=== PATIENT | male | born 1930 | race Caucasian/White ===

== ENCOUNTER 2016-09-13 10:01 | Emergency (ER) | payer MEDICARE, BC ==
[2016-09-13 10:14] VITALS: BP 163/104
[2016-09-13] MEDS ORDERED: Ibuprofen TAB* 600 MG PO ONE (10:55)
--- NOTE | 2016-09-13 11:40 | ED ---
Upper Extremity Pain - HPI Summary HPI Summary: Patient is brought in by his daughter and son with a complaint of right shoulder pain that began this morning. His son noted that the patient had been using the right arm to pull himself to a standing position yesterday, which he normally does with the left hand, since this is his dominant hand. No known trauma has occurred and they have tried Tylenol with minimal relief. He denies previous injury, N/T or inability to use the elbow, wrist or hand. No deformities are noted. 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 Mechanism Of Injury: Unknown Onset/Duration: Started Days Ago - 1 Timing: Constant Severity Initially: Severe Severity Currently: Severe Pain Location: Shoulder Character: Sharp, Aching Aggravating Factor(s): Movement Alleviating Factor(s): Rest Associated Signs & Symptoms: Positive: Negative Related History: Dominant Hand Left <Thaddeus Sheffield - Last Filed: 09/14/16 09:11> <Lizet Kramer - Last Filed: 09/14/16 21:57> - History of Current Complaint Chief Complaint: EDShoulderClavicleInj Stated Complaint: RT SHOULDER PAIN Time Seen by Provider: 09/13/16 10:47 - Allergies/Home Medications Allergies/Adverse Reactions: Allergies Allergy/AdvReac Type Severity Reaction Status Date / Time narcotics Allergy Altered Uncoded 04/07/15 13:24 Mental Status PMH/Surg Hx/FS Hx/Imm Hx Endocrine/Hematology History: Reports: Hx Diabetes, Hx Thyroid Disease Cardiovascular History: Reports: Hx Hypertension Denies: Hx Pacemaker/ICD Sensory History: Reports: Hx Hearing Aid - REMOVED FOR MRI Psychiatric History: Denies: Hx Panic Disorder - Surgical History Surgery Procedure, Year, and Place: 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 Hip Replacement L. Eye surgeries, Macular hole replacement, corneal replacement. Hernia Repair x3. VASECTOMY. Vein Infectious Disease History: No Infectious Disease History: Denies: Traveled Outside the [place] in Last 30 Days - Family History Known Family History: Positive: Cardiac Disease, Hypertension - Social History Occupation: Retired Lives: With Family Alcohol Use: Rare Substance Use Type: Reports: None Smoking Status (MU): Never Smoked Tobacco <Thaddeus Sheffield - Last Filed: 09/14/16 09:11> Review of Systems Negative: Fever Positive: Arthralgia, Myalgia, Decreased ROM Negative: Weakness, Paresthesia, Numbness All Other Systems Reviewed And Are Negative: Yes <Thaddeus Sheffield - Last Filed: 09/14/16 09:11> Physical Exam Triage Information Reviewed: Yes Vital Signs On Initial Exam: Initial Vitals Temp Pulse Resp BP Pulse Ox 98.2 F 65 18 163/104 99 09/13/16 10:02 09/13/16 10:02 09/13/16 10:02 09/13/16 10:02 09/13/16 10:02 Vital Signs Reviewed: Yes Appearance: Positive: Well-Appearing, Well-Nourished, Pain Distress Skin: Positive: Warm, Skin Color Reflects Adequate Perfusion, Dry, Soft Head/Face: Positive: Normal Head/Face Inspection Eyes: Positive: EOMI, MALIK, Conjunctiva Clear ENT: Positive: Hearing grossly normal Respiratory/Lung Sounds: Positive: Breath Sounds Present Cardiovascular: Positive: RRR Musculoskeletal: Positive: Limited @, Pain @ - TTP right bicipital groove <Thaddeus Sheffield - Last Filed: 09/14/16 09:11> Vital Signs On Initial Exam: Initial Vitals Temp Pulse Resp BP Pulse Ox 98.2 F 65 18 163/104 99 09/13/16 10:02 09/13/16 10:02 09/13/16 10:02 09/13/16 10:02 09/13/16 10:02 <Lizet Kramer - Last Filed: 09/14/16 21:57> Diagnostics - Vital Signs Vital Signs Temp Pulse Resp BP Pulse Ox 09/13/16 10:02 98.2 F 65 18 163/104 99 - Radiology No standard instances Xray Interpretation: No Acute Changes Radiology Interpretation Completed By: Radiologist <Thaddeus Sheffield - Last Filed: 09/14/16 09:11> - Vital Signs Vital Signs Temp Pulse Resp BP Pulse Ox 09/13/16 12:34 70 16 09/13/16 10:02 98.2 F 65 18 163/104 99 <Lizet Kramer - Last Filed: 09/14/16 21:57> Course/Dx - Diagnoses Differential Diagnosis/HQI/PQRI: Positive: Arthritis, Bursitis, Fracture (Closed ), Septic Arthritis, Strain, Sprain <Thaddeus Sheffield - Last Filed: 09/14/16 09:11> <Lizet Kramer - Last Filed: 09/14/16 21:57> - Diagnoses Provider Diagnoses: OSTEOARTHRITIS,CALCIFIC TENDINITIS Discharge <Thaddeus Sheffield - Last Filed: 09/14/16 09:11> <Lizet Kramer - Last Filed: 09/14/16 21:57> - Discharge Plan Condition: Stable Disposition: HOME Patient Education Materials: Osteoarthritis (ED), Calcific Tendinitis (ED) Referrals: Jose L Christensen MD [Primary Care Provider] - Additional Instructions: Please use Tylenol and ibuprofen to reduce pain as needed. If symptoms do not begin to improve in 5-7 days follow-up with your primary care provider. Return to the emergency department if symptoms worsen. Attestations User Type: Provider - I was available for consult. This patient was seen by the advanced practice provider. The patient was not presented to, seen by, or examined by me. <Lizet Kramer - Last Filed: 09/14/16 21:57>
--- NOTE | 2016-09-13 11:41 | RAD ---
HISTORY: Right shoulder pain COMPARISONS: None VIEWS: 3, Frontal internal rotation, external rotation, and outlet views of the right shoulder FINDINGS: BONE DENSITY: There is diffuse osteopenia. BONES: There is no displaced fracture. JOINTS: There is moderate osteoarthritis of the a.c. and glenohumeral joints. ALIGNMENT: There is no dislocation. SOFT TISSUES: There is soft tissue calcification along the tuberosity OTHER FINDINGS: Degenerative changes are noted of the cervical spine. The patient is status post median sternotomy. IMPRESSION: 1. OSTEOPENIA. 2. OSTEOARTHRITIS. 3. SOFT TISSUE CALCIFICATIONS SUGGESTIVE OF A CALCIFIC TENDINOPATHY. 4. NO ACUTE OSSEOUS INJURY. IF SYMPTOMS PERSIST, RECOMMEND REPEAT IMAGING
[2016-09-13] MEDS ORDERED: Ibuprofen TAB* 400 MG ONE (11:44)
== END 2016-09-13 12:34 | disposition home or self-care (01) ==
LOC: ED 10:01
DX: M19.011 Primary osteoarthritis, right shoulder (principal); M85.80 Other specified disorders of bone density and structure, unspecified site; M65.20 Calcific tendinitis, unspecified site
CPT/HCPCS: 99281; A9270-GY

== ENCOUNTER 2017-01-02 15:59 | Emergency (ER) | payer MEDICARE, BC ==
[2017-01-02 16:09] VITALS: BP 128/77
--- NOTE | 2017-01-02 16:44 | UC ---
Lower Extremity/Ankle HPI - HPI Summary HPI Summary: Unwitnessed fall 2 nights ago. Has bruising on R foot/ankle, R knee, and R hip. Pt does not recall specific injuries, does have pain in bruised areas. Not willing to bear weight. - History of Current Complaint Chief Complaint: UCTrauma Stated Complaint: FOOT INJURY FROM FALL Time Seen by Provider: 01/02/17 16:17 Hx Obtained From: Patient Onset/Duration: Sudden Onset Severity Initially: Moderate Severity Currently: Moderate Aggravating Factor(s): Standing, Ambulation Alleviating Factor(s): Rest - Allergies/Home Medications Allergies/Adverse Reactions: Allergies Allergy/AdvReac Type Severity Reaction Status Date / Time narcotics Allergy Severe Altered Uncoded 01/02/17 16:21 Mental Status PMH/Surg Hx/FS Hx/Imm Hx Endocrine History: Diabetes Cardiovascular History: Cardiac Disease, Hypertension - Surgical History Surgical History: Yes Surgery Procedure, Year, and Place: 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 CORONARY Bypass. Hip Replacement L. Eye surgeries - CATARACT, ATTEMPTED BUT UNSUCCESSFUL Macular hole REPAIR [facility] EYES- , corneal replacement. Hernia Repair x3. VASECTOMY. LEGS - VENOUS REPAIR. LT HIP REPLACEMENT - Family History Known Family History: Positive: Cardiac Disease, Hypertension - Social History Occupation: Retired Lives: With Family Alcohol Use: Rare Substance Use Type: None Smoking Status (MU): Never Smoked Tobacco Review of Systems Constitutional: Negative Skin: Bruising Eyes: Negative ENT: Negative Respiratory: Negative Cardiovascular: Negative Gastrointestinal: Negative Genitourinary: Negative Motor: Negative Neurovascular: Negative Musculoskeletal: Arthralgia, Decreased ROM Neurological: Negative Psychological: Negative All Other Systems Reviewed And Are Negative: Yes Physical Exam Triage Information Reviewed: Yes Appearance: Well-Appearing, No Pain Distress, Well-Nourished Vital Signs: Initial Vital Signs Temp 98.2 F 01/02/17 16:08 Pulse 53 01/02/17 16:08 Resp 18 01/02/17 16:08 BP 128/77 01/02/17 16:08 Pulse Ox 100 01/02/17 16:08 Vital Signs Reviewed: Yes Eyes: Positive: Conjunctiva Clear ENT: Positive: Pharynx normal, TMs normal, Other: - no facial bruising or trauma noted. Negative: Hearing grossly normal - [place] JOLLA, Nasal drainage Neck exam: Normal, Other - no bony tenderness Neck: Positive: Supple, Nontender Respiratory Exam: Normal Respiratory: Positive: Chest non-tender, Lungs clear, Normal breath sounds, No respiratory distress, No accessory muscle use Cardiovascular Exam: Normal Cardiovascular: Positive: RRR, No Murmur Musculoskeletal: Positive: ROM Intact, Other: - R balling head tender at base of 5th MT , over proximal tarsal bones, widespread bruising on lateral ankle. Bruise with abrasion to R medial knee, full ROM of knee. Dark large bruise to R lateral upper thigh, int/ext hip rotation intact without pain Neurological Exam: Normal Neurological: Positive: Alert Psychological Exam: Normal Skin Exam: Other - bruising Lower Extremity Course/Dx - Differential Dx/Diagnosis Provider Diagnoses: R distal fibula spiral fracture closed, nondisplaced. R thigh and knee contusions Discharge - Discharge Plan Condition: Stable Disposition: HOME Patient Education Materials: Ankle Fracture (ED), Contusion in Adults (ED) Referrals: Armando Snell MD [Primary Care Provider] - Vignesh Hernandez MD [Medical Doctor] - 1 Week Additional Instructions: You broke the lower part of your fibula bone in your ankle. Your hip and knee appear to be ok on the x-rays. You may bear weight only when you are wearing the boot on your foot AND USING YOUR WALKER! Try to keep your weight off the injured ankle as much as possible. Follow up with the orthopedist listed here or someone at [facility] within the next week.
--- NOTE | 2017-01-02 17:38 | RAD ---
Indication: Right Foot injury. 3 views of the right foot demonstrates old healed fracture fifth metatarsal. No definite fracture is identified. IMPRESSION: Healing fracture fifth metatarsal. No recent fracture is identified.
--- NOTE | 2017-01-02 17:40 | RAD ---
Indication: Right Ankle pain. 3 views of the right ankle demonstrates a spiral fracture of the distal fibula. Ankle mortise is intact. IMPRESSION: Spiral fracture of the distal fibula with minimal lateral displacement.
--- NOTE | 2017-01-02 17:42 | RAD ---
Indication: Right knee injury. 2 views of the right knee demonstrates no fracture. No other bone or joint abnormality is noted. IMPRESSION: No fracture of the right knee is noted.
--- NOTE | 2017-01-02 17:45 | RAD ---
Indication: Right hip pain. 2 views of the right hip and an AP view the pelvis demonstrates no definite fracture. Degenerative changes of the right hip are noted with osteophyte formation. No fracture is identified. IMPRESSION: Degenerative changes of the right hip is noted.
== END 2017-01-02 18:04 | disposition home or self-care (01) ==
LOC: UCEAST 15:59
DX: S82.441A Displaced spiral fracture of shaft of right fibula, initial encounter for closed fracture (principal); W19.XXXA Unspecified fall, initial encounter
CPT/HCPCS: 99212; G0463

== ENCOUNTER 2017-01-16 03:23 | Emergency (ER) | payer MEDICARE, BC ==
[2017-01-16 04:02] VITALS: BP 128/99
[2017-01-16] MEDS ORDERED: Tetan/Diph/Pertus SYR(Tdap)* 0.5 ML SYR(BOOSTRIX) use SYR IM ONE (04:06)
--- NOTE | 2017-01-16 06:21 | ED ---
Reynold Baca Benjamin, scribed for Marya Hansen MD on 01/16/17 at 0412 . Laceration/Wound HPI - HPI Summary HPI Summary: 86yo male comes in after a mechanical fall tonight while walking around the bed. Pt has a right forearm laceration and admits head injury upon the fall. No LOC. Denies CP or SOB. Hx of DM and CVA. Pt did fracture his right leg a couple of weeks ago from a previous fall episode, which pt has a boot placed on. Last tetanus immunization is unknown. There is also a mild abrasion on the left shoulder. - History of Current Complaint Stated Complaint: FALL/LAC ON RIGHT FOREARM Time Seen by Provider: 01/16/17 03:53 Hx Obtained From: Patient, Family/Career Development Director - son Mechanism of Injury: Other - mechanical fall Onset/Duration: Sudden Onset, Still Present Aggravating: Nothing Alleviating: Nothing Timing: Constant Onset Severity: Mild Current Severity: Mild Pain Intensity: 0 Pain Scale Used: 0-10 Numeric Associated Signs & Symptoms: Negative - Allergy/Home Medications Allergies/Adverse Reactions: Allergies Allergy/AdvReac Type Severity Reaction Status Date / Time narcotics Allergy Severe Altered Uncoded 01/02/17 16:21 Mental Status PMH/Surg Hx/FS Hx/Imm Hx Endocrine/Hematology History: Reports: Hx Diabetes, Hx Thyroid Disease Cardiovascular History: Reports: Hx Hypertension Denies: Hx Pacemaker/ICD History: Denies: Hx Renal Disease Sensory History: Reports: Hx Hearing Aid - REMOVED FOR MRI Psychiatric History: Denies: Hx Panic Disorder - Surgical History Surgery Procedure, Year, and Place: 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 CORONARY Bypass. Hip Replacement L. Eye surgeries - CATARACT, ATTEMPTED BUT UNSUCCESSFUL Macular hole REPAIR [facility] EYES- , corneal replacement. Hernia Repair x3. VASECTOMY. LEGS - VENOUS REPAIR. LT HIP REPLACEMENT - Immunization History Date of Tetanus Vaccine: unknown Infectious Disease History: No Infectious Disease History: Denies: Traveled Outside the [place] in Last 30 Days - Family History Known Family History: Positive: Cardiac Disease, Hypertension - Social History Occupation: Retired Lives: Alone Alcohol Use: Rare Substance Use Type: Reports: None Smoking Status (MU): Never Smoked Tobacco Review of Systems Constitutional: Negative Negative: Fever, Chills Eyes: Negative ENT: Negative Cardiovascular: Negative Negative: Chest Pain Respiratory: Negative Negative: Shortness Of Breath Gastrointestinal: Negative Genitourinary: Negative Musculoskeletal: Negative Positive: Other - laceration on right forearm; abrasion on left shoulder Neurological: Negative Psychological: Normal All Other Systems Reviewed And Are Negative: Yes Physical Exam Triage Information Reviewed: Yes Vital Signs On Initial Exam: Initial Vitals Temp Pulse Resp BP Pulse Ox 97.9 F 78 16 128/66 99 01/16/17 03:34 01/16/17 03:34 01/16/17 03:34 01/16/17 03:34 01/16/17 03:34 Vital Signs Reviewed: Yes Appearance: Positive: Well-Appearing, No Pain Distress, Well-Nourished Skin: Positive: Warm, Skin Color Reflects Adequate Perfusion, Dry, Other - 4cm Skin tear in circumference mid forearm dorsum, full rom. mild point tenderness. Abrasion in left posterior shoulder Head/Face: Positive: Normal Head/Face Inspection Eyes: Positive: EOMI, MALIK ENT: Positive: Hearing grossly normal, Pharynx normal, TMs normal Neck: Positive: Supple, Nontender Respiratory/Lung Sounds: Positive: Clear to Auscultation, Breath Sounds Present. Negative: Rales, Rhonchi Cardiovascular: Positive: RRR. Negative: Murmur Abdomen Description: Positive: Nontender, Soft. Negative: Distended, Guarding Bowel Sounds: Positive: Present Musculoskeletal: Positive: Strength/ROM Intact, Pain @ - RUE mild tenderness Neurological: Positive: Sensory/Motor Intact, Alert, Oriented to Person Place, Time, CN Intact II-III Psychiatric: Positive: Affect/Mood Appropriate - [place] Coma Scale Coma Scale Total: 14 Diagnostics - Vital Signs Vital Signs Temp Pulse Resp BP Pulse Ox 01/16/17 03:53 97.9 F 78 16 128/99 99 01/16/17 03:34 97.9 F 78 16 128/66 99 - Laboratory Lab Statement: Any lab studies that have been ordered have been reviewed, and results considered in the medical decision making process. - Radiology Forearm XR Xray Interpretation: No Acute Changes Radiology Interpretation Completed By: ED Physician - CT Brain CT WO CT Interpretation: No Acute Changes CT Interpretation Completed By: Radiologist Laceration Repair Course/Dx - Course Course Of Treatment: 86 yo male with a very unsteady gait who fell overnight with a skin tear right forearm, it was unclear if the patient hit his head, CT brain and xray of forearm neg, skin tear repaired with steristrips by nurse - Clinical Impression Provider Diagnoses: Hematoma, Abrasion, Skin tear Discharge - Discharge Plan Condition: Stable Disposition: HOME Patient Education Materials: Laceration (ED), Fall Prevention for Older Adults (ED), Head Injury (ED) Referrals: Armando Snell MD [Primary Care Provider] - The documentation as recorded by the Reynold day Benjamin accurately reflects the service I personally performed and the decisions made by me, Marya Hansen MD.
--- NOTE | 2017-01-16 08:05 | RAD ---
INDICATION: Right forearm injury COMPARISON: None TECHNIQUE: AP and lateral views were obtained. FINDINGS: There is no fracture or foreign body. There is soft tissue injury with laceration about the mid forearm. IMPRESSION: SOFT TISSUE INJURY.
--- NOTE | 2017-01-16 08:14 | RAD ---
INDICATION: Fall. Intracranial injury. COMPARISON: CT July 02, 2011 TECHNIQUE: Noncontrast axial source images were acquired from the skull base to the vertex. FINDINGS: Ventricles/sulci: There is cortical atrophy with compensatory dilatation of the CSF spaces. Brain parenchyma: There is no acute focal parenchymal finding. There is large area of encephalomalacia in the right cerebellar hemisphere compatible with a remote infarct. The appearance unchanged. There is periventricular and subcortical white matter change consistent with mild chronic microvascular ischemia. Intracranial hemorrhage:None. Extra-axial spaces: There are no abnormal extra axial fluid collections or evidence of extra-axial mass. Calvarium: There is no calvarial fracture or other calvarial abnormality. Scalp: There is no evidence of scalp or extracalvarial soft tissue abnormality. Paranasal sinuses/mastoid: The paranasal sinuses and mastoid air cells are clear. Other: None. IMPRESSION: Sequela of prior vascular insult. No acute intracranial findings.
== END 2017-01-16 06:16 | disposition home or self-care (01) ==
LOC: ED 03:23
DX: S51.811A Laceration without foreign body of right forearm, initial encounter (principal); S00.93XA Contusion of unspecified part of head, initial encounter; S40.212A Abrasion of left shoulder, initial encounter; W19.XXXA Unspecified fall, initial encounter; Y93.9 Activity, unspecified; Y92.9 Unspecified place or not applicable
CPT/HCPCS: 70450; 90471; 90715; 99282

== ENCOUNTER 2017-10-07 17:18 | Inpatient (IN) | payer MEDICARE, BC ==
[2017-10-07] MEDS ORDERED: Haloperidol INJ IV/IM* 5 MG/ML AMP IM ONE (19:45)
[2017-10-07] MEDS ORDERED: LORazepam INJ* 2 MG/ML 1 ML VIAL IV PUSH ONE (19:45)
[2017-10-07] MEDS ORDERED: NS 0.9% 1000 ML* 1,000 ML IV ONE (19:46)
[2017-10-07] MEDS ORDERED: LORazepam INJ* 2 MG/ML 1 ML VIAL ONE (20:12)
[2017-10-07 20:25] LABS: ABS Basophils 0.1 10^3/ul (0-0.2); ABS Eosinophils 0 10^3/ul (0-0.6); ABS Lymphocytes 2.1 10^3/ul (1.0-4.8); ABS Monocytes 1.5 10^3/ul (0-0.8); ABS Neutrophils 7.8 10^3/ul (1.5-7.7); ABS Nucleated RBC 0 10^3/ul; Eosinophil % 0.2 % (0-6); Hematocrit 45 % (42-52); Hemoglobin 14.9 g/dl (14.0-18.0); Lymphocyte % 18.6 % (25-47); Mean Corpuscular HGB Conc 34 g/dl (31-36); Mean Corpuscular Hemoglobin 32 pg (27-31); Mean Corpuscular Volume 95 fL (80-94); Mean Platelet Volume 9.1 um3 (7.4-10.4); Nucleated Red Blood Cells % 0; Platelet Count 135 10^3/ul (150-450); Red Cell Distribution Width 14 % (10.5-15); White Blood Count 11.5 10^3/ul (3.5-10.8)
[2017-10-07 20:34] LABS: INR 0.93 (0.77-1.02)
[2017-10-07 20:45] LABS: EGFR Non-African American 59.2 (>60)
[2017-10-07 21:21] LABS: Urine Appearance Clear; Urine Blood Negative (Negative); Urine Color Yellow; Urine Ketones Negative (Negative); Urine Protein Negative (Negative); Urine Specific Gravity 1.021 (1.010-1.030); Urine Urobilinogen Negative (Negative)
--- NOTE | 2017-10-07 21:31 | RAD ---
INDICATION: Altered mental status COMPARISON: CT of the brain January 16, 2017 TECHNIQUE: Contiguous axial sections of the brain were obtained from the skull base to the vertex without contrast. FINDINGS: Unless otherwise specified comparisons below reference the January 16, 2017 CT of the brain. The ventricles, cisterns and sulci exhibit symmetrical involutional changes similar in appearance to the prior CT the brain. There is stable encephalomalacia at the right cerebellum. There is diffuse periventricular and subcortical white matter hypoattenuation, similar in appearance to the previous CT of the brain, most consistent with chronic microvascular disease. Otherwise the sánchez-white matter differentiation is adequately maintained and there is no sulcal effacement. No significant focal abnormality or mass effect is present. There is no evidence for intracranial hemorrhage. No significant focal osseous abnormality is present. The visualized portion of the paranasal sinuses appear clear. The mastoid air cells are well aerated bilaterally. IMPRESSION: 1. No CT evidence of acute intracranial abnormality. 2. Chronic findings including encephalomalacia of the right cerebellum and evidence of microvascular disease similar in appearance to the January 16, 2017 CT of the brain.
--- NOTE | 2017-10-07 21:34 | RAD ---
INDICATION: Altered mental status COMPARISON: Chest x-ray dated June 02, 2015 TECHNIQUE: Single AP portable view of the chest was obtained. FINDINGS: Image quality is compromised due to the relative inferiority of a portable chest x-ray. The heart and mediastinum exhibit normal size and contour. The lungs are grossly clear. There is no evidence of a large pleural effusion. Visualized bones are normal for the patient's age. IMPRESSION: No radiographic evidence for acute cardiopulmonary abnormality on this portable chest x-ray.
--- NOTE | 2017-10-07 22:32 | ED ---
Greg Baca Rebecca, scribed for Mirna Berg MD on 10/07/17 at 1942 . Altered Mental Status - HPI Summary HPI Summary: Pt is an 87 y/o M BIBA who presents to ED due to concerns of acute on chronic confusion. Pt has a PMHx of dementia and is accompanied by his two children who report history. They state that at baseline, he has episodes of confusion at [id number], though in the last 3-4 days he has become increasingly confused . They additionally note 2 witnessed falls in the last 24 hours. Deny fever. Has an appointment tomorrow with his PCP for a UTI workup. No Hx is obtainable from the pt, level 5 caveat due to PMHx dementia. - History Of Current Complaint Chief Complaint: EDAltMentalStatus Stated Complaint: AMS/FALL Time Seen by Provider: 10/07/17 19:23 Hx Obtained From: Family/Medical Coding Instructor - Tammie nd daughter Hx From Patient Unobtainable Due To: Dementia Onset/Duration: Still Present Character: Confusion Aggravating Factor(s): Nothing Alleviating Factor(s): Nothing Associated Signs And Symptoms: Positive: Recent Trauma - 2 recent witnessed falls Related History: Other: - PMHx dementia - Allergies/Home Medications Allergies/Adverse Reactions: Allergies Allergy/AdvReac Type Severity Reaction Status Date / Time narcotics Allergy Severe Altered Uncoded 01/02/17 16:21 Mental Status Home Medications: Home Medications ALPRAZolam TAB* [Xanax TAB*] 0.25 mg PO BID PRN 10/07/17 [History Confirmed 02/16] Acetaminophen TAB* [Tylenol TAB*] 325 mg PO Q4H PRN 10/07/17 [History Confirmed 10/07/17] Aspirin EC TAB* [Ecotrin EC Low Dose 81 MG*] 81 mg PO DAILY 10/07/17 [History Confirmed 10/07/17] Calcium Polycarbophil [Fiber Lax] 625 mg PO DAILY 10/07/17 [History Confirmed ] Cholecalciferol TAB* [Vitamin D TAB*] 1,000 unit PO DAILY 10/07/17 [History Confirmed 10/07/17] Folic Acid TAB* [Folvite TAB*] 1 mg PO DAILY 10/07/17 [History Confirmed ] Levothyroxine TAB* [Synthroid TAB*] 50 mcg PO QAM 10/07/17 [History Confirmed ] Magnesium Oxide TAB* [MagOx 400 TAB*] 400 mg PO DAILY 10/07/17 [History Confirmed 10/07/17] Multivit-Mins/Iron/Folic/Lycop [Centrum Ultra Mens] 1 tab PO DAILY 10/07/17 [ History Confirmed 10/07/17] QUEtiapine TAB* [SEROquel TAB*] 25 mg PO BEDTIME 10/07/17 [History Confirmed 02/16] Rosuvastatin (NF) [Crestor (NF)] 20 mg PO BID 10/07/17 [History Confirmed ] Sertraline* [Zoloft*] 150 mg PO DAILY 10/07/17 [History Confirmed 10/07/17] SitaGLIPtin (NF) [Januvia (NF)] 100 mg PO DAILY 10/07/17 [History Confirmed 02/16] Sotalol TAB* [Betapace 80 MG TAB*] 80 mg PO BID 10/07/17 [History Confirmed 02/16] Tamsulosin CAP* [Flomax CAP*] 0.4 mg PO DAILY 10/07/17 [History Confirmed ] glipiZIDE TAB.XL* [Glucotrol XL*] 5 mg PO DAILY 10/07/17 [History Confirmed 02/16] prednisoLONE 1% OPHTH.SUSP* [Pred Forte 1%*] 1 drop LEFT EYE DAILY 10/07/17 [ History Confirmed 10/07/17] PMH/Surg Hx/FS Hx/Imm Hx Endocrine/Hematology History: Reports: Hx Diabetes, Hx Thyroid Disease Cardiovascular History: Reports: Hx Hypertension Denies: Hx Pacemaker/ICD History: Denies: Hx Renal Disease Sensory History: Reports: Hx Hearing Aid - REMOVED FOR MRI Neurological History: Reports: Hx Dementia Psychiatric History: Denies: Hx Panic Disorder - Surgical History Surgery Procedure, Year, and Place: 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 CORONARY Bypass. Hip Replacement L. Eye surgeries - CATARACT, ATTEMPTED BUT UNSUCCESSFUL Macular hole REPAIR [facility]- , corneal replacement. Hernia Repair x3. VASECTOMY. LEGS - VENOUS REPAIR. LT HIP REPLACEMENT - Immunization History Date of Tetanus Vaccine: unknown Infectious Disease History: No Infectious Disease History: Denies: Traveled Outside the [place] in Last 30 Days - Family History Known Family History: Positive: Cardiac Disease, Hypertension - Social History Lives: With Family Alcohol Use: Rare Substance Use Type: Reports: None Smoking Status (MU): Never Smoked Tobacco Review of Systems Positive: Other - 2 recent falls. Negative: Fever Neurological: Other - Acute on chronic confusion All Other Systems Reviewed And Are Negative: No - Comments Additional Review of Systems Comments: Level 5 caveat due to PMHx dementia. Physical Exam - Summary Physical Exam Summary: VITAL SIGNS: Reviewed. GENERAL: ~Patient is an elderly male who is confused and trying to get out of bed. Patient is not in any acute respiratory distress. HEAD AND FACE: No signs of trauma. No ecchymosis, hematomas or skull depressions. No sinus tenderness. EYES: PERRLA, EOMI x 2, No injected conjunctiva, no nystagmus. EARS: Hearing grossly intact. Ear canals and tympanic membranes are within normal limits. MOUTH: Oropharynx within normal limits. LUNGS: Decreased breath sounds bilaterally. No wheezing or crackles. CVS: Regular rate and rhythm, S1 and S2 present, no murmurs or gallops appreciated. EXTREMITIES: Moves all extremities in a grossly normal manner, no edema, no cyanosis or clubbing. NEURO: Alert and disoriented. Does not follow commands. SKIN: Dry and warm. Multiple areas of ecchymosis on the thighs. Triage Information Reviewed: Yes Vital Signs On Initial Exam: Initial Vitals Temp Pulse Resp BP Pulse Ox 98 F 84 14 135/82 95 10/07/17 17:30 10/07/17 17:30 10/07/17 17:30 10/07/17 17:30 10/07/17 17:30 Vital Signs Reviewed: Yes Completion Of Physical Exam Limited Due To: Dementia, Level 5 - Konstantin Coma Scale Glascow Coma Scale Comments: 13 Diagnostics - Vital Signs Vital Signs Temp Pulse Resp BP Pulse Ox 10/07/17 19:00 17 10/07/17 18:00 88 23 149/96 84 10/07/17 17:41 93 23 158/85 96 10/07/17 17:37 84 96 10/07/17 17:30 98 F 84 14 135/82 95 - Laboratory Result Diagrams: 10/07/17 20:00 10/07/17 20:00 Lab Statement: Any lab studies that have been ordered have been reviewed, and results considered in the medical decision making process. - Radiology CXR Xray Interpretation: No Acute Changes - No radiographic evidence for acute cardiopulmonary abnormality on this portable chest x-ray. ED physician reviewed this report. Radiology Interpretation Completed By: Radiologist - CT Brain CT CT Interpretation: No Acute Changes - 1. No CT evidence of acute intracranial abnormality. 2. Chronic findings including encephalomalacia of the right cerebellum and evidence of microvascular disease similar in appearance to the January 16, 2017 CT of the brain. ED physician reviewed this radiology report. CT Interpretation Completed By: Radiologist Altered Mental Statu Course/Dx - Course Assessment/Plan: Pt is an 87 y/o M with a PMHx of dementia BIBA accompanied by his 2 children who presents to ED due to concerns of acute on chronic confusion , worsening in the last 3-4 days. Trupti additionally note 2 witnessed falls in the last 24 hours. Deny fever. Has an appointment tomorrow with his PCP for a UTI workup. No Hx is obtainable from the pt, level 5 caveat due to PMHx dementia. Brain CT and CXR reveal no acute findings. UA negative. In the ED course pt was given Haldol, ativan and fluids. Allergy noted. - Diagnoses Provider Diagnoses: Altered mental status - Provider Notifications Discussed Care Of Patient With: Hussein Acosta Time Discussed With Above Provider: 22:16 Instructed by Provider To: Other - Accepts pt for admission. Discharge - Sign-Out/Discharge Documenting (check all that apply): Discharge - Accepted - Discharge Plan Condition: Fair Disposition: ADMITTED TO [facility] Referrals: Armando Snell MD [Primary Care Provider] - The documentation as recorded by the Greg day Rebecca accurately reflects the service I personally performed and the decisions made by , Mirna Berg MD.
[2017-10-07] MEDS ORDERED: hydrALAZINE IV* 20 MG/ML VIAL IV PRN (23:20)
[2017-10-07] MEDS ORDERED: Acetaminophen TAB* 325 MG PO PRN (23:20)
--- NOTE | 2017-10-07 23:31 | HP ---
H&P (Free Text) History and Physical: PCP: Anum Snell MD Date/Time: 10/07/2017 [id number] CC: confusion HPI: Mr Mccann is an 87YO male HX dementia, CVA, bovine AVR, DVT, SVT, adrenal insufficiency, DM2, HTN, CAD/CABG who has been declining from a dementia standpoint for the past 6 months, manifesting progressively more disruptive and frequent behavioral issues and confusion. Family relates that over the past 3 days he has been confused continuously like he had typically been only at night previously. He has had urinary incontinence the last 2 nights which is new. He does frequently complain of various aches, but is easily distracted from the discomfort. There has been no other issues. As his confusion has never been this prolonged, they decided to have him brought in and evaluated. Upon arrival , he was reportedly highly confused and combative. Upon my evaluation, he was somnolent and sedated from medications given in ED. PMedHx CAD/CABG bovine AVR SVT CVA DM2 DVT adrenal insufficiency HTN hypothyroidism dementia BPH depression anxiety Ambulatory Orders ALPRAZolam TAB* [Xanax TAB*] 0.25 mg PO BID PRN 10/07/17 Acetaminophen TAB* [Tylenol TAB*] 325 mg PO Q4H PRN 10/07/17 Aspirin EC TAB* [Ecotrin EC Low Dose 81 MG*] 81 mg PO DAILY 10/07/17 Calcium Polycarbophil [Fiber Lax] 625 mg PO DAILY 10/07/17 Cholecalciferol TAB* [Vitamin D TAB*] 1,000 unit PO DAILY 10/07/17 Folic Acid TAB* [Folvite TAB*] 1 mg PO DAILY 10/07/17 Levothyroxine TAB* [Synthroid TAB*] 50 mcg PO QAM 10/07/17 Magnesium Oxide TAB* [MagOx 400 TAB*] 400 mg PO DAILY 10/07/17 Multivit-Mins/Iron/Folic/Lycop [Centrum Ultra Mens] 1 tab PO DAILY 10/07/17 QUEtiapine TAB* [SEROquel TAB*] 25 mg PO BEDTIME 10/07/17 Rosuvastatin (NF) [Crestor (NF)] 20 mg PO BID 10/07/17 Sertraline* [Zoloft*] 150 mg PO DAILY 10/07/17 SitaGLIPtin (NF) [Januvia (NF)] 100 mg PO DAILY 10/07/17 Sotalol TAB* [Betapace 80 MG TAB*] 80 mg PO BID 10/07/17 Tamsulosin CAP* [Flomax CAP*] 0.4 mg PO DAILY 10/07/17 glipiZIDE TAB.XL* [Glucotrol XL*] 5 mg PO DAILY 10/07/17 prednisoLONE 1% OPHTH.SUSP* [Pred Forte 1%*] 1 drop LEFT EYE DAILY 10/07/17 Allergies narcotics Adverse Reaction (Uncoded 10/07/17 22:22) Altered Mental Status PSurgHx bovine AVR CABG OU cataract extractions R inguinal hernia repair SocHx: no tobacco, alcohol, or recreational drugs; lives with family; 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; full code status, needs revisiting FamHx: reviewed, non-contributory ROS: as above, otherwise reviewed and all were negative vitals: Vital Signs Temp 36.6 C 10/07/17 17:30 Pulse 85 10/07/17 22:07 Resp 16 10/07/17 22:07 BP 108/57 10/07/17 22:07 Pulse Ox 95 10/07/17 20:41 Intake & Output 10/06/17 10/07/17 10/07/17 23:59 11:59 23:59 Intake Total 1000 Balance 1000 Weight 95.254 kg Intake: IV Fluids 1000 Constitutional: NAD, normally developed, overweight elderly white male HEENM: atraumatic; sclera: anicteric; hearing: unable to assess; oropharynx: clear, mucosa moist Neck: soft tissue: no nuchal rigidity; thyroid: normal Pulmonary: clear to auscultation bilaterally, good aeration, no accessory muscle use CV: RR/RR, normal S1S2, no carotid bruit, no jugular venous distention, 2+ B DP/ PT, no edema Abdominal: soft, non-distended, non-tender, no rebound/guarding/rigidity, normoactive bowel sounds, no hepatosplenomegaly or masses, no costovertebral angle tenderness Musculoskeletal: general: grossly intact, no tenderness w/ palpation Integumental: normal appearance and texture of exposed skin Psychiatric orientation: AA&O to PPS affect: somnolent mood: acquiescent eye contact: poor content: absent memory: unable to assess responses: minimal, withdraws purposefully to noxious stimuli insight: poor to absent Testing: Lab Results 10/07/17 10/07/17 10/07/17 Range/Units 20:00 20:00 20:00 WBC 11.5 H (3.5-10.8) 10^3/ul RBC 4.70 (4.0-5.4) 10^6/ul Hgb 14.9 (14.0-18.0) g/dl Hct 45 (42-52) % MCV 95 H (80-94) fL MCH 32 H (27-31) pg MCHC 34 (31-36) g/dl RDW 14 (10.5-15) % Plt Count 135 L (150-450) 10^3/ul MPV 9.1 (7.4-10.4) um3 Neut % (Auto) 67.7 (38-83) % Lymph % (Auto) 18.6 L (25-47) % [place] % (Auto) 12.9 H (0-7) % Eos % (Auto) 0.2 (0-6) % Baso % (Auto) 0.6 (0-2) % Absolute Neuts (auto) 7.8 H (1.5-7.7) 10^3/ul Absolute Lymphs (auto) 2.1 (1.0-4.8) 10^3/ul Absolute Monos (auto) 1.5 H (0-0.8) 10^3/ul Absolute Eos (auto) 0 (0-0.6) 10^3/ul Absolute Basos (auto) 0.1 (0-0.2) 10^3/ul Absolute Nucleated RBC 0 10^3/ul Nucleated RBC % 0 INR (Anticoag Therapy) 0.93 (0.77-1.02) APTT 24.6 L (26.0-36.3) seconds Sodium 140 (139-145) mmol/L Potassium 3.7 (3.5-5.0) mmol/L Chloride 105 (101-111) mmol/L Carbon Dioxide 28 (22-32) mmol/L Anion Gap 7 (2-11) mmol/L BUN 21 (6-24) mg/dL Creatinine 1.17 (0.67-1.17) mg/dL Est GFR ( Amer) 76.2 (>60) Est GFR (Non-Af Amer) 59.2 (>60) BUN/Creatinine Ratio 17.9 (8-20) Glucose 137 H (70-100) mg/dL Lactic Acid (0.5-2.0) mmol/L Calcium 10.5 H (8.6-10.3) mg/dL Total Bilirubin 0.70 (0.2-1.0) mg/dL AST 21 (13-39) U/L ALT 13 (7-52) U/L Alkaline Phosphatase 96 (34-104) U/L Troponin I 0.03 (<0.04) ng/mL Total Protein 7.5 (6.4-8.9) g/dL Albumin 3.8 (3.2-5.2) g/dL Globulin 3.7 (2-4) g/dL Albumin/Globulin Ratio 1.0 (1-3) Urine Color Urine Appearance Urine pH (5-9) Ur Specific [place] (1.010-1.030) Urine Protein (Negative) Urine Ketones (Negative) Urine Blood (Negative) Urine Nitrate (Negative) Urine Bilirubin (Negative) Urine Urobilinogen (Negative) Ur Leukocyte Esterase (Negative) Urine Glucose (Negative) 10/07/17 10/07/17 Range/Units 20:00 21:05 WBC (3.5-10.8) 10^3/ul RBC (4.0-5.4) 10^6/ul Hgb (14.0-18.0) g/dl Hct (42-52) % MCV (80-94) fL MCH (27-31) pg MCHC (31-36) g/dl RDW (10.5-15) % Plt Count (150-450) 10^3/ul MPV (7.4-10.4) um3 Neut % (Auto) (38-83) % Lymph % (Auto) (25-47) % [place] % (Auto) (0-7) % Eos % (Auto) (0-6) % Baso % (Auto) (0-2) % Absolute Neuts (auto) (1.5-7.7) 10^3/ul Absolute Lymphs (auto) (1.0-4.8) 10^3/ul Absolute Monos (auto) (0-0.8) 10^3/ul Absolute Eos (auto) (0-0.6) 10^3/ul Absolute Basos (auto) (0-0.2) 10^3/ul Absolute Nucleated RBC 10^3/ul Nucleated RBC % INR (Anticoag Therapy) (0.77-1.02) APTT (26.0-36.3) seconds Sodium (139-145) mmol/L Potassium (3.5-5.0) mmol/L Chloride (101-111) mmol/L Carbon Dioxide (22-32) mmol/L Anion Gap (2-11) mmol/L BUN (6-24) mg/dL Creatinine (0.67-1.17) mg/dL Est GFR ( Amer) (>60) Est GFR (Non-Af Amer) (>60) BUN/Creatinine Ratio (8-20) Glucose (70-100) mg/dL Lactic Acid 1.2 (0.5-2.0) mmol/L Calcium (8.6-10.3) mg/dL Total Bilirubin (0.2-1.0) mg/dL AST (13-39) U/L ALT (7-52) U/L Alkaline Phosphatase (34-104) U/L Troponin I (<0.04) ng/mL Total Protein (6.4-8.9) g/dL Albumin (3.2-5.2) g/dL Globulin (2-4) g/dL Albumin/Globulin Ratio (1-3) Urine Color Yellow Urine Appearance Clear Urine pH 5.0 (5-9) Ur Specific [place] 1.021 (1.010-1.030) Urine Protein Negative (Negative) Urine Ketones Negative (Negative) Urine Blood Negative (Negative) Urine Nitrate Negative (Negative) Urine Bilirubin Negative (Negative) Urine Urobilinogen Negative (Negative) Ur Leukocyte Esterase Negative (Negative) Urine Glucose Negative (Negative) CXR, personally reviewed: IMPRESSION: No radiographic evidence for acute cardiopulmonary abnormality on this portable chest x-ray. CT brain WO, personally reviewed: IMPRESSION: 1. No CT evidence of acute intracranial abnormality. 2. Chronic findings including encephalomalacia of the right cerebellum and evidence of microvascular disease similar in appearance to the January 16, 2017 CT of the brain. Impression: 87M HX dementia, CVA, bovine AVR, DVT, SVT, adrenal insufficiency, DM2, HTN, CAD/CABG presents with progressive confusion & behavioral issues likely related to his dementia DIAGNOSIS & PLAN Primary confusion & behavioral issues, likely 2nd progressive dementia : continue quetiapine : recheck labs in AM : PT/OT evaluations : rn social services consult : check EEG in AM give risk factors for seizure : supportive care Secondary CAD/CABG : continue aspirin bovine AVR : no acute issues CVA : continue aspirin DM2 : continue sitagliptin & glipizide : check A1c : consistent carb diet : correctional insulin HX SVT : continue sotalol HX DVT : SCDs & heparin SQ HTN : monitor HLD : continue rosuvastatin hypothyroidism : continue levothyroxine depression : continue sertraline anxiety : hold alprazolam given confusion BPH : continue tamsulosin Admission Rational: observation for confusion DVTp: SCDs & heparin SQ Code Status: full HCP: daughterLean
[2017-10-08] MEDS: NS 0.9% 1000 ML* 1,000 ML IV SCH ×2 (02:00→22:27)
[2017-10-08] MEDS: Levothyroxine TAB* 50 MCG TAB PO SCH (05:46)
[2017-10-08] MEDS: Omeprazole CAP* 20 MG PO SCH (05:46)
[2017-10-08 05:49] LABS: Hematocrit 41 % (42-52); Hemoglobin 13.8 g/dl (14.0-18.0); Mean Corpuscular HGB Conc 34 g/dl (31-36); Mean Corpuscular Hemoglobin 32 pg (27-31); Mean Corpuscular Volume 95 fL (80-94); Mean Platelet Volume 8.9 um3 (7.4-10.4); Platelet Count 112 10^3/ul (150-450); Red Blood Count 4.28 10^6/ul (4.0-5.4); Red Cell Distribution Width 14 % (10.5-15); White Blood Count 8.9 10^3/ul (3.5-10.8)
[2017-10-08] MEDS: Heparin VIAL(*) 5000 UNITS/ML VIAL (FIVE THOUSAND) SUBCUT SCH ×3 (06:27→22:28)
--- NOTE | 2017-10-08 08:27 | PN ---
Subjective Date of Service: 10/08/17 Interval History: Mr. Mccann denies complaint but is confused. Objective Active Medications: Acetaminophen (Tylenol Tab*) 650 mg PO Q6H PRN Aspirin (Aspirin Ec Tab*) 81 mg PO DAILY [facility] Atorvastatin Calcium (Lipitor*) 40 mg PO BID [facility] Docusate Sodium (Colace Cap*) 200 mg PO BID [facility] Glipizide (Glucotrol Xl*) 5 mg PO DAILY [facility] Heparin Sodium (Porcine) (Heparin Vial(*)) 5,000 units SUBCUT Q8HR [facility] Hydralazine HCl (Apresoline Iv*) 10 mg IV Q4H PRN Sodium Chloride (Ns 0.9% 1000 Ml*) 1,000 mls @ 50 mls/hr IV PER RATE [facility] Insulin Human Lispro (Humalog*) 0 units SUBCUT ACHS [facility] Levothyroxine Sodium (Synthroid Tab*) 50 mcg PO QAM@0600 [facility] Melatonin (Melatonin (Nf)) 3 mg PO BEDTIME PRN; Protocol Omeprazole (Prilosec Cap*) 20 mg PO DAILY@0600 [facility] Prednisolone Acetate (Pred Forte 1%*) 1 drop LEFT EYE DAILY [facility] Quetiapine Fumarate (Seroquel Tab*) 25 mg PO BEDTIME [facility] Sertraline HCl (Zoloft*) 150 mg PO DAILY [facility] Sitagliptin Phosphate (Januvia (Nf)) 100 mg PO DAILY [facility] Sotalol HCl (Betapace Tab*) 80 mg PO BID [facility] Tamsulosin HCl (Flomax Cap*) 0.4 mg PO DAILY [facility] Vital Signs: Temp Pulse Resp BP Pulse Ox 98.3 F 89 18 161/75 97 10/08/17 01:45 10/08/17 01:45 10/08/17 01:57 10/08/17 01:45 10/08/17 01:45 Oxygen Devices in Use Now: None Appearance: Male sitting up in chair in NAD Eyes: No Scleral Icterus Ears/Nose/Mouth/Throat: Mucous Membranes Moist Neck: Trachea Midline Respiratory: Symmetrical Chest Expansion and Respiratory Effort, Clear to Auscultation Cardiovascular: NL Sounds; No Murmurs; No JVD, No Edema Abdominal: NL Sounds; No Tenderness; No Distention Lymphatic: No Cervical Adenopathy Extremities: No Edema Skin: No Rash or Ulcers Neurological: NL Muscle Strength and Tone, - - Awakens easily to voice, answers a few questions, can follow some commands, smiling Nutrition: Taking PO's Result Diagrams: 10/08/17 05:22 10/08/17 05:22 Assess/Plan/Problems-Billing Assessment: Mr. Mccann is an 87 yo male with a PMH of CVA, bovine AVR, DVT, SVT, adrenal insufficiency, DM2, HTN, CAD/CABG and dementia who has had a progressive decline in functioning with increasingly difficult behaviors and confusion who was admitted on 10/07/17 with worsening and prolonged confusion over the past 3 days. - Patient Problems (1) Altered mental status Comment: - No evidence of infection, UA normal and chest xray without acute finding. - Labs unremarkable. - Suspect related to waxing and waning nature of chronic dementia. Could be seizures but patient unlikely to tolerate seizure meds. - Neurology consult pending. (2) Dementia Comment: - With behavioral disturbances. - Continue sertaline and quetiapine (3) Diabetes Comment: - BG well controlled. - Continue BGS qAC with lispro SSI coverage. - Hold januvia and glipizide. (4) Hypothyroidism Comment: - Continue levothyroxine. (5) Hypertension Comment: - SBP 130-160s. - Not on home meds other than sotalol for afib. (6) CAD (coronary artery disease) Comment: - Continue atorvastatin and aspirin. (7) SVT (supraventricular tachycardia) Comment: - Continue sotalol, no history of afib noted. (8) DVT prophylaxis Comment: - Heparin SQ. (9) Full code status Comment: Status and Disposition: OBV. Patient likely to need increased support. Family considering [facility].
[2017-10-08] MEDS ORDERED: glipiZIDE TAB.XL* 5 MG PO SCH (09:00)
[2017-10-08] MEDS ORDERED: CMCS:SitaGLIPtin (NF) 100 MG TAB PO SCH (09:00)
[2017-10-08] MEDS: Insulin LISPRO* 1 UNITS UNIT SUBCUT SCH ×4 (09:50→20:10)
[2017-10-08] MEDS: Aspirin EC TAB* 81 MG TAB.EC PO SCH (13:39)
[2017-10-08] MEDS: Sertraline* 100 MG TAB PO SCH (13:39)
[2017-10-08] MEDS: Atorvastatin* 40 MG TAB PO SCH ×2 (13:39→19:59)
[2017-10-08] MEDS: PREDNISOLONE 1% LEFT EYE SCH (13:40)
[2017-10-08] MEDS: Tamsulosin CAP* 0.4 MG PO SCH (13:40)
[2017-10-08] MEDS: Docusate CAP* 100 MG PO SCH ×2 (13:40→20:00)
[2017-10-08] MEDS: Sotalol TAB* 80 MG PO SCH ×2 (13:40→20:00)
[2017-10-08] MEDS: QUEtiapine TAB* 25 MG PO SCH (19:59)
--- NOTE | 2017-10-08 21:19 | RAD ---
Indication: Altered mental status. Dementia. CVA. Progressive worsening. Increased falls. Comparison: October 07, 2017 CT and December 27, 2016 MRI. Technique: BBC Easya 1.5 Lyla [id number] with GEM suite. MRI brain without contrast. Report: Diffusion series is negative for acute or subacute ischemia. Susceptibility series is negative for stigmata of hemosiderin deposition to indicate previous hemorrhage. 3.9 cm maximum dimension region of encephalomalacia related to previous infarct involving the superior aspect of the RIGHT cerebellar hemisphere without change. Small bilateral frontal and LEFT parietal lobe lacunar infarcts without significant change. Moderate prominence of the cerebral sulci and mild prominence of the cerebellar fissures reflecting atrophy. Patent basal cisterns. Increased T2 FLAIR signal in the periventricular white matter of the cerebral hemispheres most consistent with chronic small vessel ischemic disease. Unremarkable orbital contents. Preserved major intracranial flow-voids. No suspicious calvarial or skull base lesion evident. Clear paranasal sinuses and mastoid air spaces. Unremarkable scalp. IMPRESSION: 1. No evidence for acute or subacute ischemia. 2. Old RIGHT cerebellar infarct and small supratentorial lacunar infarcts as well as stigmata of chronic small vessel ischemic disease. 3. Involutional change.
--- NOTE | 2017-10-08 23:10 | CONS ---
CONSULTATION REPORT: DATE OF CONSULT: 10/08/17 CURRENT LOCATION: Room 405, bed 1. PRIMARY CARE PHYSICIAN: Armando Snell MD. REASON FOR CONSULTATION: Altered mental status and longstanding dementia. HISTORY OF PRESENT ILLNESS: Mr. Mccann is an 87-year-old gentleman, who has a history of multiple medical issues including prior strokes, dementia, bovine aortic valve replacement, DVT, SVT, adrenal insufficiency, depression, diabetes , coronary artery disease status post CABG, hypertension, hypercholesterolemia, macular degeneration, hypothyroidism, who is followed by Dr. Lena Simpson in the office, last seen on 09/28/17. At that time, he was with his son and daughter and per the note, his cognitive status had been worsening. Attempted MOCA at that time was 12/09 and the family reported that his mood and agitation continued to be an issue. He had been started on sertraline and this had slowly been titrated up, currently on 150 mg daily, but per the note, his son stated that it had "taken the edge out of the anger that he can have" but he continued to have it. Apparently, he has been having some sleep wake cycle issues as well. It was noted in the office visit that if they take him out during the day and get him tired, it can result in him actually being awake for 24 to 36 hours. It was also noted that he has auditory and visual hallucinations as well as some delusions. There was reported word finding difficulty that was worse with more inappropriate words at time. During that office visit, the overall concern was for an underlying neurodegenerative dementia, lack of sleep and mood. The sertraline seemed to be helping some and the family was using Xanax on rare occasions. There was a long discussion between the family and Dr. Simpson about his dementia and Aricept and Namenda. In addition, they talked about using low dose Seroquel for his hallucinations and he was started on 25 mg at bedtime but the family has not picked up the prescription and he has not been taking it. This appears to be his most recent medication adjustment. He presented to the hospital last night with a 3-day history of confusion which had been ongoing, a change from his normal confusion which typically happens at night. The family also noted that he had urinary incontinence for the last 2 nights, prior to admission. He had fallen several times at home as well. He has been complaining of headaches. Because of the prolonged confusion and falls , they brought him to the ER for further evaluation. During his ER visit, he was given Haldol for acute agitation and was very somnolent afterwards. CT scan of the head was reviewed. Old right cerebellar stroke noted, chronic white matter disease, but no acute issues. He was noted on admission to have an elevated white count of 11.5. Urine was negative. Chest x-ray showed no acute issues and he has been afebrile. I spoke with the nurse who stated that overnight last night, he was very somnolent, but today he has been intermittently awake and has been pleasant to her. She stated at times last night, he would become agitated. She noted no significant hallucinations during her evaluations. This morning, his a.m. meds were held because of drowsiness. This evening, upon my evaluation, he was sleeping, but awakens. He is pleasant, generally follows commands but unable to give me any significant history, I obtained my history from review of prior office and hopsital notes and his admission H&P. EEG was ordered, has not been done at this point. PAST MEDICAL HISTORY: As noted above. CURRENT MEDICATIONS: 1. Tylenol 650 mg p.o. q.6 hours p.r.n. 2. Aspirin 81 mg daily. 3. Lipitor 40 mg p.o. b.i.d. 4. Colace 200 mg p.o. b.i.d. 5. Heparin DVT prophylaxis. 6. Hydralazine 10 mg IV q.4 hours p.r.n. systolic greater than 170. 7. Humalog. 8. Synthroid 50 mcg p.o. q.a.m. 9. Melatonin 3 mg at bedtime p.r.n. sleep. 10. Omeprazole 20 mg p.o. daily. 11. Prednisolone eye drops. 12. Seroquel 25 mg at bedtime. 13. Zoloft 150 mg daily. 14. Sotalol 80 mg p.o. b.i.d. 15. Flomax 0.4 mg p.o. daily. 16. Last Haldol injection at 7:45 last night. He was also given Ativan x1, 1 mg at 7:45, repeated 2 mg at 8:15. ALLERGIES: To MORPHINE which caused worsening delirium and hallucinations. FAMILY HISTORY: Noncontributory. SOCIAL HISTORY: No tobacco, alcohol or drug use. Lives with his family. Both his son and daughter are caregivers. His daughter is the power of claims attorney. 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 Full code. REVIEW OF SYSTEMS: Difficult to obtain and unreliable. 14 organ ROS attempted : He denied any headaches, vision changes, swallowing difficulty, chest pain, shortness of breath, abdominal pain, nausea, vomiting, diarrhea, constipation, muscle aches or pain. PHYSICAL EXAMINATION: Vital Signs: Temp of 98.1, pulse is 70, respiratory rate is 16, blood pressure 133/72 to 135/73 to 127/77. In general, he is a well-nourished, well-developed gentleman, sitting in his hospital bed, sleeping. He awakens easily. He is well dressed, well groomed. HEENT: He is normocephalic, atraumatic. Sclerae anicteric. Mucous membranes are dry. Oropharynx is clear. Nares are patent. Neck is supple. No thyromegaly. No carotid bruits. No meningismus. Chest: Clear to auscultation bilaterally. Cardiovascular: Regular rate and rhythm. Abdomen is nontender. Extremities: No clubbing, cyanosis. He has 1+ nonpitting edema in his feet bilaterally. There are chronic vascular changes in his lower extremities bilaterally. On neurologic exam, he is awake, he is alert, he is oriented to person only. His speech is somewhat slurred at times and at other times, he is able to make words appropriately, although his sentences are not appropriate. Cranial nerves : pupils are equal, round, and reactive to light. Extraocular muscles are intact. He blinks to threat throughout. Face is symmetric. Hearing is diminished bilaterally. Tongue is midline. Palate raises symmetrically. Motor exam: difficult examination due to compliance, but he is moving all extremities antigravity, there is no obvious drift. Sensation, appears intact to light touch and pinprick but unreliable. He does withdraw to pain. DTRs are 2+ in the upper extremities, 1+ at the patella bilaterally, trace at the ankles , withdrawal to Babinski bilaterally. [id number]-tc-pbrp and rapid alternating movements were slow, but intact. There was no tremors noted. Gait was not tested at this time. He currently denies any hallucinations. He is pleasant. He is well dressed. LABORATORY DATA: Lab work includes a white count of 11.5 on admission, today 8.9. Slightly anemic with a hemoglobin of 13.8, hematocrit of 41, platelet count of 112,000. INR 0.93, PTT of 24.6. Chemistry: Glucose of 137; calcium of 10.5, down to 9.8 today. Hemoglobin A1c is 6.0, lactic acid is 0.6, TSH of 4.26. His LFTs were normal. Renal function is good. His electrolytes were normal. Urine was negative. ASSESSMENT AND PLAN: Mr. Mccann is an 87-year-old gentleman with a number of medical issues noted above, history of cognitive decline, likely at least partially vascular in nature, with a history of prior stroke, coronary artery disease, CABG. He also has a history of depression and anxiety. He has had declining mental status for some time. At his last office visit, it was noted that he has been having hallucinations. His mood has been labile with agitation at times. He has been started on sertraline and is currently on 150 mg and Seroquel was added at his last visit on 09/28/17. I have not had a chance to talk with the daughter, although she did call the office. She noted that the patient had not started the Seroquel at the last visit and that over the weekend became more confused and was that way all weekend, also incontinent of urine. He also had a "pacing episode" and fell at 4 p.m. on Sunday. I am going to order an MRI of his brain to look for any evidence of new acute strokes, which could cause a decompensation in his mental status. His TSH is normal, I will check a B12 and folate. At this point, there is no obvious metabolic or infectious cause for his declining status. EEG is to be done, but my suspicion for underlying seizures is low. I see no medications that have been added other than the Seroquel, which he is not taking. My biggest concern is that he is having ongoing cognitive decline and that the behavioral issues are part of that picture with acute delirium likely related to his lack of sleep. He got Haldol yesterday and slept overnight. I am going to give him the Seroquel tonight and will see how he does. We will continue his antidepressant with no change I will need to speak with the family about care issues moving forward, whether or not they feel they can take care of him at home, but discharge planning will be a major factor at this point. I am not going to make any other changes tonight and we will see how he does tomorrow. I will make further recommendations at that time after the MRI. I attempted to reach the daughter but no answer. I will continue to try to call the son and/or daughter a bit later and to get some more history. Thank you for the opportunity to participate in his care. [id number]/[facility] #: [id number] JONG
--- NOTE | 2017-10-09 04:23 | EEG ---
ELECTROENCEPHALOGRAPHY: DATE OF STUDY: 10/08/17 - ROOM #405 PATIENT OF: Dr. Acosta. CLINICAL PROBLEM: This is an 87-year-old man being evaluated for progressive dementia and urinary incontinence. MEDICATIONS: Include: 1. Aspirin. 2. Atorvastatin. 3. Docusate. 4. Glipizide. 5. Hydralazine. 6. Insulin. 7. Levothyroxine. 8. Melatonin. 9. Omeprazole. 10. Prednisone. 11. Quetiapine. 12. Sertraline. 13. Sotalol. 14. Tamsulosin. REPORT: With the patient awake, background cerebral activity consists of moderate amplitude diffuse 5 to 6 Hz rhythm and the patient never falls asleep. No epileptiform potentials, focal abnormalities, or major asymmetries of background are noted. There is no triphasic waves noted. CLINICAL IMPRESSION: This awake EEG is abnormal because of the few slowing of background consistent with an encephalopathy, but nonspecific as to the etiology. [id number]/[facility] #: [id number] MTDD
[2017-10-09] MEDS: Heparin VIAL(*) 5000 UNITS/ML VIAL (FIVE THOUSAND) SUBCUT SCH ×3 (05:51→21:53)
[2017-10-09] MEDS: Omeprazole CAP* 20 MG PO SCH (05:52)
[2017-10-09] MEDS: Levothyroxine TAB* 50 MCG TAB PO SCH (05:53)
--- NOTE | 2017-10-09 08:29 | PN ---
Subjective Date of Service: 10/09/17 Interval History: Mr. Mccann is awake, alert and pleasant at the time of my examination. He denies any complaint other than stating that his meds crushed in apple sauce are "yucky." Objective Active Medications: Acetaminophen (Tylenol Tab*) 650 mg PO Q6H PRN Aspirin (Aspirin Ec Tab*) 81 mg PO DAILY [facility] Atorvastatin Calcium (Lipitor*) 40 mg PO BID EMILY Docusate Sodium (Colace Cap*) 200 mg PO BID EMILY Heparin Sodium (Porcine) (Heparin Vial(*)) 5,000 units SUBCUT Q8HR [facility]ILY Hydralazine HCl (Apresoline Iv*) 10 mg IV Q4H PRN Sodium Chloride (Ns 0.9% 1000 Ml*) 1,000 mls @ 50 mls/hr IV PER RATE EMILY Insulin Human Lispro (Humalog*) 0 units SUBCUT ACHS EMILY Levothyroxine Sodium (Synthroid Tab*) 50 mcg PO QAM@0600 [facility] Melatonin (Melatonin (Nf)) 3 mg PO BEDTIME PRN; Protocol Omeprazole (Prilosec Cap*) 20 mg PO DAILY@0600 [facility] Prednisolone Acetate (Pred Forte 1%*) 1 drop LEFT EYE DAILY [facility] Quetiapine Fumarate (Seroquel Tab*) 25 mg PO BEDTIME EMILY Sertraline HCl (Zoloft*) 150 mg PO DAILY [facility] Sotalol HCl (Betapace Tab*) 80 mg PO BID EMILY Tamsulosin HCl (Flomax Cap*) 0.4 mg PO DAILY [facility] Vital Signs: Temp Pulse Resp BP Pulse Ox 98.0 F 67 16 111/64 97 10/09/17 02:50 10/09/17 02:50 10/09/17 02:50 10/09/17 02:50 10/09/17 02:50 Oxygen Devices in Use Now: None Appearance: Elderly male lying in bed in NAD Eyes: No Scleral Icterus Ears/Nose/Mouth/Throat: Mucous Membranes Moist Neck: Trachea Midline Respiratory: Symmetrical Chest Expansion and Respiratory Effort, Clear to Auscultation Cardiovascular: NL Sounds; No Murmurs; No JVD, No Edema Abdominal: NL Sounds; No Tenderness; No Distention Lymphatic: No Cervical Adenopathy Extremities: No Edema Skin: No Rash or Ulcers Neurological: NL Muscle Strength and Tone, - - Alert, not oriented to self, pleasant and cooperative Nutrition: Taking PO's Result Diagrams: 10/08/17 05:22 10/08/17 05:22 Assess/Plan/Problems-Billing Assessment: Mr. Mccann is an 87 yo male with a PMH of CVA, bovine AVR, DVT, SVT, adrenal insufficiency, DM2, HTN, CAD/CABG and dementia who has had a progressive decline in functioning with increasingly difficult behaviors and confusion who was admitted on 10/07/17 with worsening and prolonged confusion over the past 3 days. - Patient Problems (1) Altered mental status Comment: - Suspect secondary to dementia and chronic behavioral issues exacerbated by sleep disturbance. - Appreciate neurology consultation. - MRI and CT brain without acute abnormality. EEG without epileptiform discharges. - No evidence of infection, UA normal and chest xray without acute finding. - Labs unremarkable, B12, folate and TSH normal. - Continue seroquel (started this admission). (2) Dementia Comment: - With behavioral disturbances. - Continue sertaline and quetiapine (3) Diabetes Comment: - BG well controlled. - Continue BGS qAC with lispro SSI coverage. - Hold januvia and glipizide. (4) Hypothyroidism Comment: - Continue levothyroxine. (5) Hypertension Comment: - SBP 130-160s. - Not on home meds other than sotalol for afib. (6) CAD (coronary artery disease) Comment: - Continue atorvastatin and aspirin. (7) SVT (supraventricular tachycardia) Comment: - Continue sotalol, no history of afib noted. (8) DVT prophylaxis Comment: - Heparin SQ. (9) Full code status Comment: Status and Disposition: OBV. Patient likely to need increased support. Family considering [facility].
--- NOTE | 2017-10-09 08:43 | PN ---
Subjective Date of Service: 10/09/17 Interval History: Spoke with nurse and reviewed notes. The patient was somnolent and sleeping overnight. No reported issues. No agitation reported. This morning, he is very somnolent, arouses but not participating in the exam. Will respond to his name but will not open his eyes for me or turn in bed. MRI: Films reviewed: Old right cerebellar stroke, chronic white matter changes , no evidence of new stroke EEG: Diffuse slowing, no epileptiform activity. No evidence of acute infection, CXR and UA are ok, initial elevated WBC has normalized. TSH, B12 and Folate all normal. Objective Active Medications: Acetaminophen (Tylenol Tab*) 650 mg PO Q6H PRN PRN Reason: FEVER/PAIN Aspirin (Aspirin Ec Tab*) 81 mg PO DAILY [facility] Last Admin: 10/08/17 13:39 Dose: 81 mg Atorvastatin Calcium (Lipitor*) 40 mg PO BID [facility] Last Admin: 10/08/17 19:59 Dose: 40 mg Docusate Sodium (Colace Cap*) 200 mg PO BID [facility] Last Admin: 10/08/17 20:00 Dose: Not Given Heparin Sodium (Porcine) (Heparin Vial(*)) 5,000 units SUBCUT Q8HR [facility] Last Admin: 10/09/17 05:51 Dose: 5,000 units Hydralazine HCl (Apresoline Iv*) 10 mg IV Q4H PRN PRN Reason: Systolic >170 Sodium Chloride (Ns 0.9% 1000 Ml*) 1,000 mls @ 50 mls/hr IV PER RATE [facility] Last Admin: 10/08/17 22:27 Dose: 50 mls/hr Insulin Human Lispro (Humalog*) 0 units SUBCUT ACHS [facility] PRN Reason: Protocol Last Admin: 10/08/17 20:10 Dose: Not Given Levothyroxine Sodium (Synthroid Tab*) 50 mcg PO QAM@0600 [facility] Last Admin: 10/09/17 05:53 Dose: Not Given Melatonin (Melatonin (Nf)) 3 mg PO BEDTIME PRN; Protocol PRN Reason: Sleep Omeprazole (Prilosec Cap*) 20 mg PO DAILY@0600 [facility] Last Admin: 10/09/17 05:52 Dose: Not Given Prednisolone Acetate (Pred Forte 1%*) 1 drop LEFT EYE DAILY [facility] Last Admin: 10/08/17 13:40 Dose: 1 drop Quetiapine Fumarate (Seroquel Tab*) 25 mg PO BEDTIME [facility] Last Admin: 10/08/17 19:59 Dose: 25 mg Sertraline HCl (Zoloft*) 150 mg PO DAILY [facility] Last Admin: 10/08/17 13:39 Dose: 150 mg Sotalol HCl (Betapace Tab*) 80 mg PO BID [facility] Last Admin: 10/08/17 20:00 Dose: 80 mg Tamsulosin HCl (Flomax Cap*) 0.4 mg PO DAILY [facility] Last Admin: 10/08/17 13:40 Dose: 0.4 mg Vital Signs 10/08/17 10/08/17 10/08/17 11:38 16:03 19:59 Temperature 98.1 F 98.7 F Pulse Rate 70 70 75 Respiratory 16 16 20 Rate Blood Pressure 135/73 127/77 110/65 (mmHg) O2 Sat by Pulse 99 100 98 Oximetry 10/08/17 10/08/17 10/09/17 20:00 23:38 02:50 Temperature 99.1 F 98.0 F Pulse Rate 72 67 Respiratory 16 16 Rate Blood Pressure 119/83 111/64 (mmHg) O2 Sat by Pulse 98 100 97 Oximetry Oxygen Devices in Use Now: None Neurology Exam: General: HEENT: Normocephalic, would not open eyes this am. MMM Chest: Clear to auscultation bilaterally Cardiovascular: Regular rate and rhythm without murmurs, rubs, gallops Abdomen: Soft Extremities: No clubbing or cyanosis Neurological Findings: Somnolent, arouses but falls back asleep. Not compliant with exam. Speech: produces a few words, some dysarthria Cranial Nerve: non-compliant. Face appears symmetric. Motor: Moving all extremities but will not follow commands Sensation: w/d to pain X 4 Deep Tendon Reflex: Difficult to assess this am No resting tremor Gait: Could not walk this am but nursing reports ambulating yesterday with walker and assist Result Diagrams: 10/08/17 05:22 10/08/17 05:22 Assessment/Plan Assessment: 87 year old gentleman with a history of multiple medical issues including prior right cerebellar stoke, CAD and CABG, AVR with bovine valve and history of ongoing cognitive decline with behavioral changes and hallucination, followed by Dr. Simpson as an outpatient. Recently saw her in late August and Seroquel was added at night for continued agitation but family never gave it. There is concern about his sleep/wake cycle and per my discussion with his son yesterday , he will stay up all hours of the night and sleep during the day. His demenita pattern is likely mixed with a vascular component as well. He has fallen several times in the last few days and been more agitated and confused and has an acute decompensation over the last few days, although the source of his delirium is unclear. Delirium on Dementia: There is no evidence of new stroke and the EEG showed encephalopathic picture, concern for seizures is low. I suspect his decompensation is multifactorial with underlying and ongoing progression of his dementia as well as issues with sleep. Overnight, he did sleep well on Seroquel but he is very somnolent this am. I plan to see him later and re-evaluate his somnolence. We may need to cut back on the Seroquel to 12.5mg at night but I do think that he will need some atypical for behavior, hallucinations and hopefully more restful sleep at night. I did discuss the black box warning with his son and at this point, he son feels that the risks of atypicals is acceptable given the difficulties with his behavior and psychosis. Ultimately, the family would like to care for him at home but his behavior is the limiting factor at this point. Will continue to monitor closely. Addendum: I returned to the room after lunch time and the daughter and son were there. The patient was sitting up in the chair and eating lunch and the family felt he was better. We discussed the fact that sleep may be playing a major role leading to his acute decompensation. There are no other obvious causes for his decline. We also discussed the fact that his dementia is progressing as well. He may not return to his prior baseline. The family agrees that continued Seroquel is appropriate as it seemed to help him sleep last night and he looks better this afternoon. We may want to consider 1/2 dose if he is too somnolent the next day or two. Conversely, if his psychosis continues and he does not sleep well, we may need to increase the dose. This is something that will have to be titrated up or down as an outpatient over time. I will continue to follow along. No further recommendations at this time.
[2017-10-09] MEDS: Tamsulosin CAP* 0.4 MG PO SCH (09:23)
[2017-10-09] MEDS: Atorvastatin* 40 MG TAB PO SCH ×2 (09:23→21:53)
[2017-10-09] MEDS: Sotalol TAB* 80 MG PO SCH ×2 (09:24→21:53)
[2017-10-09] MEDS: Sertraline* 100 MG TAB PO SCH (09:24)
[2017-10-09] MEDS: Aspirin EC TAB* 81 MG TAB.EC PO SCH (09:24)
[2017-10-09] MEDS: Insulin LISPRO* 1 UNITS UNIT SUBCUT SCH ×4 (09:25→21:37)
[2017-10-09] MEDS: Docusate CAP* 100 MG PO SCH ×2 (09:26→21:36)
[2017-10-09] MEDS: PREDNISOLONE 1% LEFT EYE SCH (09:26)
[2017-10-09] MEDS: NS 0.9% 1000 ML* 1,000 ML IV SCH (20:51)
[2017-10-09] MEDS: QUEtiapine TAB* 25 MG PO SCH (21:53)
[2017-10-10] MEDS: CMCS:Melatonin (NF) 3 MG TAB PO PRN ×2 (01:26→01:49)
[2017-10-10] MEDS: Levothyroxine TAB* 50 MCG TAB PO SCH ×2 (06:10→06:26)
[2017-10-10] MEDS: Omeprazole CAP* 20 MG PO SCH ×2 (06:11→06:26)
[2017-10-10] MEDS: Heparin VIAL(*) 5000 UNITS/ML VIAL (FIVE THOUSAND) SUBCUT SCH ×3 (06:22→20:56)
[2017-10-10 07:23] LABS: ABS Basophils 0.1 10^3/ul (0-0.2); ABS Eosinophils 0.1 10^3/ul (0-0.6); ABS Lymphocytes 2.3 10^3/ul (1.0-4.8); ABS Neutrophils 4.3 10^3/ul (1.5-7.7); ABS Nucleated RBC 0 10^3/ul; Eosinophil % 1.6 % (0-6); Hematocrit 37 % (42-52); Hemoglobin 12.7 g/dl (14.0-18.0); Lymphocyte % 29.6 % (25-47); Mean Corpuscular HGB Conc 34 g/dl (31-36); Mean Corpuscular Hemoglobin 32 pg (27-31); Mean Corpuscular Volume 95 fL (80-94); Mean Platelet Volume 9.1 um3 (7.4-10.4); Nucleated Red Blood Cells % 0; Platelet Count 113 10^3/ul (150-450); Red Blood Count 3.91 10^6/ul (4.0-5.4); Red Cell Distribution Width 14 % (10.5-15); White Blood Count 7.7 10^3/ul (3.5-10.8)
--- NOTE | 2017-10-10 07:34 | PN ---
Subjective Date of Service: 10/10/17 Interval History: Reviewed the chart and spoke with overnight nurse. He slept off and on but when he would wake up, would be very agitated. Trying to get out of bed. Periods of sound sleep. No other new issues overnight. Has to get up several times to use the bathroom at night. Per nursing record over the last few days, no BM. Updated family yesterday afternoon, spoke with son and daughter who would like to try to take him home at d/c. Objective Active Medications: Acetaminophen (Tylenol Tab*) 650 mg PO Q6H PRN PRN Reason: FEVER/PAIN Aspirin (Aspirin Ec Tab*) 81 mg PO DAILY [facility] Last Admin: 10/09/17 09:24 Dose: 81 mg Atorvastatin Calcium (Lipitor*) 40 mg PO BID [facility] Last Admin: 10/09/17 21:53 Dose: 40 mg Docusate Sodium (Colace Cap*) 200 mg PO BID [facility] Last Admin: 10/09/17 21:36 Dose: Not Given Heparin Sodium (Porcine) (Heparin Vial(*)) 5,000 units SUBCUT Q8HR [facility] Last Admin: 10/10/17 06:22 Dose: 5,000 units Hydralazine HCl (Apresoline Iv*) 10 mg IV Q4H PRN PRN Reason: Systolic >170 Sodium Chloride (Ns 0.9% 1000 Ml*) 1,000 mls @ 50 mls/hr IV PER RATE [facility] Last Admin: 10/09/17 20:51 Dose: 50 mls/hr Insulin Human Lispro (Humalog*) 0 units SUBCUT ACHS [facility] PRN Reason: Protocol Last Admin: 10/09/17 21:37 Dose: Not Given Levothyroxine Sodium (Synthroid Tab*) 50 mcg PO QAM@0600 [facility] Last Admin: 10/10/17 06:26 Dose: 50 mcg Melatonin (Melatonin (Nf)) 3 mg PO BEDTIME PRN; Protocol PRN Reason: Sleep Last Admin: 10/10/17 01:49 Dose: 3 mg Omeprazole (Prilosec Cap*) 20 mg PO DAILY@0600 [facility] Last Admin: 10/10/17 06:26 Dose: 20 mg Prednisolone Acetate (Pred Forte 1%*) 1 drop LEFT EYE DAILY [facility] Last Admin: 10/09/17 09:26 Dose: 1 drop Quetiapine Fumarate (Seroquel Tab*) 25 mg PO BEDTIME [facility] Last Admin: 10/09/17 21:53 Dose: 25 mg Sertraline HCl (Zoloft*) 150 mg PO DAILY [facility] Last Admin: 10/09/17 09:24 Dose: 150 mg Sotalol HCl (Betapace Tab*) 80 mg PO BID [facility] Last Admin: 10/09/17 21:53 Dose: 80 mg Tamsulosin HCl (Flomax Cap*) 0.4 mg PO DAILY [facility] Last Admin: 10/09/17 09:23 Dose: 0.4 mg Vital Signs 10/09/17 10/09/17 10/09/17 07:37 08:00 15:48 Temperature 97.9 F Pulse Rate 56 60 Respiratory 16 16 16 Rate Blood Pressure 106/46 121/83 (mmHg) O2 Sat by Pulse 100 99 Oximetry 10/09/17 10/09/17 10/10/17 19:39 20:00 00:03 Temperature 98.0 F 98.2 F Pulse Rate 70 67 Respiratory 22 22 16 Rate Blood Pressure 132/72 111/89 (mmHg) O2 Sat by Pulse 99 99 94 Oximetry Oxygen Devices in Use Now: None Neurology Exam: General: HEENT: Normocephalic/atraumatic, sclera anicteric, mucous membranes slightly dry Neck: Supple Chest: Clear to auscultation bilaterally Cardiovascular: Regular rate and rhythm Abdomen: Soft Extremities: No clubbing, cyanosis Neurological Findings: Sleeping but awakens easily this am. Oriented to person only. He does speak in some sentences, word finding difficulties. 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 Speech: Mild dysarthria, slow speech with word finding difficulties. Cranial Nerve: PEERL, EOM intact, no nystagmus, face symmetric bilaterally, hearing grossly intact, palate elevates symmetrically, tongue midline Motor: Moving all extremities antigravity, no obvious focal weakness but difficult exam Sensation: grossly intact to LT in all extremities No tremors Gait: Did not walk this morning, but he does ambulate with some assist Result Diagrams: 10/10/17 06:55 10/08/17 05:22 Assessment/Plan Assessment: 87 year old gentleman with a history of multiple medical issues including prior right cerebellar stoke, CAD and CABG, AVR with bovine valve and history of ongoing cognitive decline with behavioral changes and hallucination, followed by Dr. Simpson as an outpatient. Recently saw her in late August and Seroquel was added at night for continued agitation but family never gave it. Also on Sertraline. Progressive dementia with superimposed delirium, I suspect lack of sleep in the last week is largely responsible. Progression of his underlying dementia is also likely at play. No obvious source for delirium found. It appears he has had no BM since admission although the patient cannot confirm this. Constipation could be the cause of some AMS, especially with underlying dementia --Since starting the Seroquel, he seems to sleep better, although up last night several times. I suggest we try increasing the Seroquel to 50mg tonight and see how he does. I would like for him to get restful sleep all night if possible. If he does not sleep well with the increased dose, we can consider another agent that might cause more somnolence. Can continue Melatonin as necessary. We could also consider switching anti-depressant to Remeron which can help with sleep at night. Some of this may need to be done as an outpatient. --Constipation: Bowel regimen per Primary. He is on Colace. Consider additional medication. 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 We did briefly discuss placement yesterday but they would like to try taking care of him at home. Perhaps if he continues to be constipated, we could justify home health nurse to come in at regular intervals. Previously denied per family.
[2017-10-10] MEDS: Sertraline* 100 MG TAB PO SCH (10:11)
[2017-10-10] MEDS: PREDNISOLONE 1% LEFT EYE SCH (10:11)
[2017-10-10] MEDS: Tamsulosin CAP* 0.4 MG PO SCH (10:12)
[2017-10-10] MEDS: Docusate CAP* 100 MG PO SCH (10:12)
[2017-10-10] MEDS: Atorvastatin* 40 MG TAB PO SCH ×2 (10:12→20:56)
[2017-10-10] MEDS: Insulin LISPRO* 1 UNITS UNIT SUBCUT SCH ×4 (10:12→21:02)
[2017-10-10] MEDS: Sotalol TAB* 80 MG PO SCH ×2 (10:12→21:15)
[2017-10-10] MEDS: Aspirin EC TAB* 81 MG TAB.EC PO SCH (10:12)
--- NOTE | 2017-10-10 18:32 | PN ---
Subjective Date of Service: 10/10/17 Interval History: Patient was seen and examined at bedside. Both his son and daughter are present in room. Patient appears confused, but answers questions. His son is very upset with changes in his dad's behaviour. Initially, both son and daughter would like to take their dad home, but now they are not sure if they are able to care for him. Dr. Telles's note reviewed, consult appreciated. Nurses notes from last night reviewed. Appears to have more delirium and confusion after sun down. Family History: Unchanged from Admission Social History: Unchanged from Admission Past Medical History: Unchanged from Admission Objective Active Medications: Acetaminophen (Tylenol Tab*) 650 mg PO Q6H PRN PRN Reason: FEVER/PAIN Aspirin (Aspirin Ec Tab*) 81 mg PO DAILY [facility] Last Admin: 10/10/17 10:12 Dose: 81 mg Atorvastatin Calcium (Lipitor*) 40 mg PO BID [facility] Last Admin: 10/10/17 10:12 Dose: 40 mg Docusate Sodium (Colace Cap*) 200 mg PO BID [facility] Last Admin: 10/10/17 10:12 Dose: 200 mg Heparin Sodium (Porcine) (Heparin Vial(*)) 5,000 units SUBCUT Q8HR [facility] Last Admin: 10/10/17 17:16 Dose: 5,000 units Hydralazine HCl (Apresoline Iv*) 10 mg IV Q4H PRN PRN Reason: Systolic >170 Sodium Chloride (Ns 0.9% 1000 Ml*) 1,000 mls @ 50 mls/hr IV PER RATE [facility] Last Admin: 10/09/17 20:51 Dose: 50 mls/hr Insulin Human Lispro (Humalog*) 0 units SUBCUT ACHS [facility] PRN Reason: Protocol Last Admin: 10/10/17 17:17 Dose: 1 units Levothyroxine Sodium (Synthroid Tab*) 50 mcg PO QAM@0600 [facility] Last Admin: 10/10/17 06:26 Dose: 50 mcg Melatonin (Melatonin (Nf)) 3 mg PO BEDTIME PRN; Protocol PRN Reason: Sleep Last Admin: 10/10/17 01:49 Dose: 3 mg Omeprazole (Prilosec Cap*) 20 mg PO DAILY@0600 [facility] Last Admin: 10/10/17 06:26 Dose: 20 mg Prednisolone Acetate (Pred Forte 1%*) 1 drop LEFT EYE DAILY [facility] Last Admin: 10/10/17 10:11 Dose: 1 drop Quetiapine Fumarate (Seroquel Tab*) 50 mg PO BEDTIME [facility] Sertraline HCl (Zoloft*) 150 mg PO DAILY [facility] Last Admin: 10/10/17 10:11 Dose: 150 mg Sotalol HCl (Betapace Tab*) 80 mg PO BID [facility] Last Admin: 10/10/17 10:12 Dose: 80 mg Tamsulosin HCl (Flomax Cap*) 0.4 mg PO DAILY [facility] Last Admin: 10/10/17 10:12 Dose: 0.4 mg Vital Signs - 8 hr 10/10/17 10/10/17 11:19 16:30 Temperature 97.4 F Pulse Rate 62 64 Respiratory 17 16 Rate Blood Pressure 132/71 139/76 (mmHg) O2 Sat by Pulse 100 100 Oximetry Oxygen Devices in Use Now: None Appearance: Awake, alert to self, appears comfortable and in NAD. Eyes: No Scleral Icterus, PERRLA Ears/Nose/Mouth/Throat: Mucous Membranes Moist Neck: NL Appearance and Movements; NL JVP, Trachea Midline Respiratory: Symmetrical Chest Expansion and Respiratory Effort, Clear to Auscultation Cardiovascular: NL Sounds; No Murmurs; No JVD, RRR Abdominal: NL Sounds; No Tenderness; No Distention Skin: No Rash or Ulcers Neurological: - - Neurologic exam was done by Dr. Telles this AM, no acute changes. Nutrition: Taking PO's Result Diagrams: 10/10/17 06:55 10/08/17 05:22 Additional Lab and Data: . Diagnostic Imaging: . Assess/Plan/Problems-Billing Assessment: 87 year old gentleman with a history of multiple medical issues including prior right cerebellar stoke, CAD and CABG, AVR with bovine valve and history of ongoing cognitive decline with behavioral changes and hallucination, who experienced progressive dementia with superimposed delirium. - Patient Problems (1) Altered mental status Current Visit: Yes Comment: - Suspect secondary to dementia and chronic behavioral issues exacerbated by sleep disturbance. - Appreciate neurology consultation. - MRI and CT brain without acute abnormality. EEG without epileptiform discharges. - No evidence of infection, UA normal and chest xray without acute finding. - Labs unremarkable, B12, folate and TSH normal. - Continue seroquel, dose up to 50 mg starting tonight, per Dr. Telles. (2) CAD (coronary artery disease) Current Visit: Yes Comment: - Continue atorvastatin and aspirin. (3) Dementia Current Visit: Yes Comment: - With behavioral disturbances. - Continue sertaline and quetiapine (4) Diabetes Current Visit: Yes Comment: - BG well controlled. - Continue BGS qAC with lispro SSI coverage. - Hold januvia and glipizide. (5) Hypertension Current Visit: Yes Comment: - SBP 130-160s. - Not on home meds other than sotalol for afib. (6) Hypothyroidism Current Visit: No Comment: - Continue levothyroxine. (7) DVT prophylaxis Current Visit: No Comment: - Heparin SQ. (8) Full code status Current Visit: No Comment: Status and Disposition: Mr. Fofana has been having progressive dementia with superimposed delirium. Neurology suspects lack of sleep in the last week is largely responsible. Progression of his underlying dementia is also likely at play. No obvious source for delirium found. It appears he has had no BM since admission although the patient cannot confirm this. Constipation could be the cause of some AMS, especially with underlying dementia student support services director input was appreciated. Family discussed possible d/c plans available. He is medically stable, anticipate discharge to [facility] tomorrow.
[2017-10-10] MEDS ORDERED: Docusate LIQ* 100 MG/10 ML UDC PO PRN (19:18)
[2017-10-10] MEDS: Docusate LIQ* 100 MG/10 ML UDC PO SCH (20:55)
[2017-10-10] MEDS ORDERED: QUEtiapine TAB* 25 MG PO SCH (21:00)
[2017-10-10] MEDS ORDERED: Haloperidol INJ IV/IM* 5 MG/ML AMP IM ONE (23:00)
[2017-10-10] MEDS: Haloperidol INJ IV/IM* 5 MG/ML AMP IV SLOW PU ONE (23:25)
[2017-10-11] MEDS: Haloperidol INJ IV/IM* 5 MG/ML AMP IV SLOW PU ONE (00:03)
[2017-10-11] MEDS ORDERED: LORazepam INJ* 2 MG/ML 1 ML VIAL IV PUSH ONE (05:00)
[2017-10-11] MEDS: Heparin VIAL(*) 5000 UNITS/ML VIAL (FIVE THOUSAND) SUBCUT SCH ×3 (06:05→23:33)
[2017-10-11] MEDS: NS 0.9% 1000 ML* 1,000 ML IV SCH (06:17)
[2017-10-11] MEDS: Levothyroxine TAB* 50 MCG TAB PO SCH (07:36)
[2017-10-11] MEDS: Omeprazole CAP* 20 MG PO SCH (07:36)
--- NOTE | 2017-10-11 08:29 | PN ---
Subjective Date of Service: 10/11/17 Interval History: He was up last night, agitated at times. He did receive the increased Seroquel (50mg) but it did not seem to help much. He ended up needing Haldol and Ativan to help calm him and now has 1:1 sitter. Became physically aggressive with staff at times. He did not receive Melatonin last night. This morning, he remains very confused. Not compliant with exam. I spoke with daughter on the phone and updated her on the situation. Family History: Unchanged from Admission Social History: Unchanged from Admission Past Medical History: Unchanged from Admission Objective Active Medications: Acetaminophen (Tylenol Tab*) 650 mg PO Q6H PRN PRN Reason: FEVER/PAIN Aspirin (Aspirin Ec Tab*) 81 mg PO DAILY [facility] Last Admin: 10/10/17 10:12 Dose: 81 mg Atorvastatin Calcium (Lipitor*) 40 mg PO BID [facility] Last Admin: 10/10/17 20:56 Dose: 40 mg Docusate Sodium (Colace Liq*) 100 mg PO BID [facility] Last Admin: 10/10/17 20:55 Dose: 100 mg Heparin Sodium (Porcine) (Heparin Vial(*)) 5,000 units SUBCUT Q8HR [facility] Last Admin: 10/11/17 06:05 Dose: 5,000 units Hydralazine HCl (Apresoline Iv*) 10 mg IV Q4H PRN PRN Reason: Systolic >170 Sodium Chloride (Ns 0.9% 1000 Ml*) 1,000 mls @ 50 mls/hr IV PER RATE [facility] Last Admin: 10/11/17 06:17 Dose: 50 mls/hr Insulin Human Lispro (Humalog*) 0 units SUBCUT ACHS [facility] PRN Reason: Protocol Last Admin: 10/10/17 21:02 Dose: Not Given Levothyroxine Sodium (Synthroid Tab*) 50 mcg PO QAM@0600 [facility] Last Admin: 10/11/17 07:36 Dose: Not Given Melatonin (Melatonin (Nf)) 3 mg PO BEDTIME PRN; Protocol PRN Reason: Sleep Last Admin: 10/10/17 01:49 Dose: 3 mg Omeprazole (Prilosec Cap*) 20 mg PO DAILY@0600 [facility] Last Admin: 10/11/17 07:36 Dose: Not Given Prednisolone Acetate (Pred Forte 1%*) 1 drop LEFT EYE DAILY [facility] Last Admin: 10/10/17 10:11 Dose: 1 drop Quetiapine Fumarate (Seroquel Tab*) 50 mg PO BEDTIME [facility] Last Admin: 10/10/17 20:55 Dose: 50 mg Sertraline HCl (Zoloft*) 150 mg PO DAILY [facility] Last Admin: 10/10/17 10:11 Dose: 150 mg Sotalol HCl (Betapace Tab*) 80 mg PO BID [facility] Last Admin: 10/10/17 21:15 Dose: 80 mg Tamsulosin HCl (Flomax Cap*) 0.4 mg PO DAILY [facility] Last Admin: 10/10/17 10:12 Dose: 0.4 mg Vital Signs 10/10/17 10/10/17 10/10/17 11:19 16:30 19:45 Temperature 97.4 F Pulse Rate 62 64 Respiratory 17 16 16 Rate Blood Pressure 132/71 139/76 (mmHg) O2 Sat by Pulse 100 100 95 Oximetry 10/10/17 10/10/17 10/11/17 19:52 23:43 03:57 Temperature 98.1 F 98.4 F 97.7 F Pulse Rate 66 72 84 Respiratory 16 20 20 Rate Blood Pressure 129/75 122/69 (mmHg) O2 Sat by Pulse 97 95 95 Oximetry 10/11/17 10/11/17 05:08 06:00 Temperature Pulse Rate Respiratory 16 16 Rate Blood Pressure (mmHg) O2 Sat by Pulse Oximetry Oxygen Devices in Use Now: None Neurology Exam: General: HEENT: Normocephelic/atraumatic, sclera anicteric, mucous membranes moist Chest: Clear to auscultation bilaterally Cardiovascular: Regular rate and rhythm Abdomen: Soft, non-distended Extremities: No significant edema, skin warm Neurological Findings: Sleeping but awakens, very agitated, not compliant with exam. Will follow simple commands intermittently Speech: Will say sentences at times, no dysarthria. Very confused Cranial Nerve: Difficult exam: Pupils equal and reactive, Face symmetric, tongue midline Motor: Moving all extremities actively, against gravity, good strength, no focality Sensation: WD to pain X 4 Deep Tendon Reflex: Unable to assess No resting tremor appreciated Result Diagrams: 10/10/17 06:55 10/08/17 05:22 Additional Lab and Data: . Diagnostic Imaging: . Assessment/Plan Assessment: Delirium on Dementia: Overnight, the patient became more aggressive. We attempted to increase his Seroquel in the hopes that it would help his agitation and insomnia. He ultimately required Haldol and Ativan. No obvious source for delirium but he has not been sleeping well lately, at times very little sleep for days. --I spoke with PCP, plan tonight is to try Remeron 15mg. Hold the Seroquel but have Haldol and Ativan prn for worsening agitation. We can consider using Haldol scheduled as it tends to be very sedating. Zyprexa is another option. --Continue Melatonin --Try to keep him up today, OOB to chair, active as much as possible to avoid further disruption in sleep-wake cycle --D/C planning is working on step down rehab but currently he is too unstable --I did update his daughter this morning. We discussed using the Remeron, the risk of Serotonin syndrome when using two anti-depressants and plans to try other medications if necessary
[2017-10-11] MEDS ORDERED: Mirtazapine TAB* 15 MG PO PRN (09:00)
--- NOTE | 2017-10-11 09:07 | PN ---
Subjective Date of Service: 10/11/17 Interval History: Patient seen and examined. Per record, patient very agitated overnight. Required haldol. Seems more calm this AM. Eating breakfast, refuses to wear a hospital gown. 1:[address] for patient safety. Unable to obtain ROS 2/ 2 condition. Family History: Unchanged from Admission Social History: Unchanged from Admission Past Medical History: Unchanged from Admission Objective Active Medications: Acetaminophen (Tylenol Tab*) 650 mg PO Q6H PRN PRN Reason: FEVER/PAIN Aspirin (Aspirin Ec Tab*) 81 mg PO DAILY [facility] Last Admin: 10/10/17 10:12 Dose: 81 mg Atorvastatin Calcium (Lipitor*) 40 mg PO BID [facility] Last Admin: 10/10/17 20:56 Dose: 40 mg Docusate Sodium (Colace Liq*) 100 mg PO BID [facility] Last Admin: 10/10/17 20:55 Dose: 100 mg Heparin Sodium (Porcine) (Heparin Vial(*)) 5,000 units SUBCUT Q8HR [facility] Last Admin: 10/11/17 06:05 Dose: 5,000 units Hydralazine HCl (Apresoline Iv*) 10 mg IV Q4H PRN PRN Reason: Systolic >170 Sodium Chloride (Ns 0.9% 1000 Ml*) 1,000 mls @ 50 mls/hr IV PER RATE [facility] Last Admin: 10/11/17 06:17 Dose: 50 mls/hr Insulin Human Lispro (Humalog*) 0 units SUBCUT ACHS [facility] PRN Reason: Protocol Last Admin: 10/10/17 21:02 Dose: Not Given Levothyroxine Sodium (Synthroid Tab*) 50 mcg PO QAM@0600 [facility] Last Admin: 10/11/17 07:36 Dose: Not Given Melatonin (Melatonin (Nf)) 3 mg PO BEDTIME [facility] PRN Reason: Protocol Mirtazapine (Remeron Tab*) 15 mg PO BEDTIME PRN PRN Reason: SLEEP Omeprazole (Prilosec Cap*) 20 mg PO DAILY@0600 [facility] Last Admin: 10/11/17 07:36 Dose: Not Given Prednisolone Acetate (Pred Forte 1%*) 1 drop LEFT EYE DAILY [facility] Last Admin: 10/10/17 10:11 Dose: 1 drop Sertraline HCl (Zoloft*) 150 mg PO DAILY [facility] Last Admin: 10/10/17 10:11 Dose: 150 mg Sotalol HCl (Betapace Tab*) 80 mg PO BID [facility] Last Admin: 10/10/17 21:15 Dose: 80 mg Tamsulosin HCl (Flomax Cap*) 0.4 mg PO DAILY [facility] Last Admin: 10/10/17 10:12 Dose: 0.4 mg Vital Signs - 8 hr 10/11/17 10/11/17 10/11/17 03:57 05:08 06:00 Temperature 97.7 F Pulse Rate 84 Respiratory 20 16 16 Rate Blood Pressure 122/69 (mmHg) O2 Sat by Pulse 95 Oximetry Oxygen Devices in Use Now: None Appearance: Alert, confused, no distress Ears/Nose/Mouth/Throat: Clear Oropharnyx Neck: Trachea Midline Respiratory: Symmetrical Chest Expansion and Respiratory Effort, Clear to Auscultation Cardiovascular: NL Sounds; No Murmurs; No JVD, RRR, No Edema Skin: - - erythema to groin Neurological: - - confused at baseline Nutrition: Taking PO's Result Diagrams: 10/10/17 06:55 10/08/17 05:22 Additional Lab and Data: . Diagnostic Imaging: . Assess/Plan/Problems-Billing Assessment: This is an 87 year old gentleman with history of progressive mixed dementia with acute delerium requiring hospitalization to stabilize behavior. Delirium on Dementia: Overnight, the patient became more aggressive. We attempted to increase his Seroquel in the hopes that it would help his agitation and insomnia. He ultimately required Haldol and Ativan. No obvious source for delirium but he has not been sleeping well lately, at times very little sleep for days. - Patient Problems (1) Altered mental status Code(s): R41.82 - ALTERED MENTAL STATUS, UNSPECIFIED SNOMED Code(s): 644370358 Comment: - Mixed dementia exacerbated by sleep deprivation - Neurology following - MRI and CT brain without acute abnormality. EEG without epileptiform discharges - No evidence of infection, UA normal and chest xray without acute findings - DC seroquel, continue haldol PRN, ativan PRN, melatonin, add remeron - Labs unremarkable, B12, folate and TSH normal. - Continue seroquel, dose up to 50 mg starting tonight, per Dr. Telles. (2) Dementia Code(s): F03.90 - UNSPECIFIED DEMENTIA WITHOUT BEHAVIORAL DISTURBANCE SNOMED Code(s): 56615514 Comment: - progressive mixed - supportive care, meds as above (3) CAD (coronary artery disease) Code(s): I25.10 - ATHSCL HEART DISEASE OF [place] CORONARY ARTERY W/O ANG PCTRS SNOMED Code(s): 15013606 Comment: - Stable, continue atorvastatin and aspirin (4) Diabetes Code(s): E11.9 - TYPE 2 DIABETES MELLITUS WITHOUT COMPLICATIONS SNOMED Code(s) : 54814859 Comment: - BG well controlled with lispro SSI coverage - Hold januvia and glipizide (5) Hypertension Code(s): I10 - ESSENTIAL (PRIMARY) HYPERTENSION SNOMED Code(s): 24161126 Comment: - SBP 120's last 24 h - Continue sotalol for afib (6) Full code status Code(s): Z78.9 - OTHER SPECIFIED HEALTH STATUS SNOMED Code(s): 043124975 Comment: Status and Disposition: Dispo: DC to [facility], referral out to facility in [place], will likely be clear for DC tomorrow if current medication regimen is adequate.
[2017-10-11] MEDS: Insulin LISPRO* 1 UNITS UNIT SUBCUT SCH ×4 (10:13→23:32)
[2017-10-11] MEDS: Atorvastatin* 40 MG TAB PO SCH ×2 (10:15→23:31)
[2017-10-11] MEDS: Aspirin EC TAB* 81 MG TAB.EC PO SCH (10:15)
[2017-10-11] MEDS: PREDNISOLONE 1% LEFT EYE SCH (10:16)
[2017-10-11] MEDS: Docusate LIQ* 100 MG/10 ML UDC PO SCH ×2 (10:16→23:32)
[2017-10-11] MEDS: Sertraline* 100 MG TAB PO SCH (10:17)
[2017-10-11] MEDS: Sotalol TAB* 80 MG PO SCH ×2 (10:18→23:32)
[2017-10-11] MEDS: Tamsulosin CAP* 0.4 MG PO SCH (10:19)
[2017-10-11] MEDS: Haloperidol INJ IV/IM* 5 MG/ML AMP IM PRN (15:05)
[2017-10-11] MEDS: CMCS:Melatonin (NF) 3 MG TAB PO SCH (21:57)
[2017-10-11] MEDS: Magnesium Hydroxide LIQ* 30 ML UDC PO SCH (23:33)
[2017-10-12] MEDS: Omeprazole CAP* 20 MG PO SCH (07:22)
[2017-10-12] MEDS: Heparin VIAL(*) 5000 UNITS/ML VIAL (FIVE THOUSAND) SUBCUT SCH ×3 (07:22→21:35)
[2017-10-12] MEDS: Levothyroxine TAB* 50 MCG TAB PO SCH (07:22)
--- NOTE | 2017-10-12 08:42 | PN ---
Subjective Date of Service: 10/12/17 Interval History: He is refusing some of his meds. He had no BM overnight. He did agree to take Remeron and Melatonin and slept much better. Per the sitter, he was not agitated overnight, slept through the night. Incontinent of urine. No other issues ovenight. Somnolent this am Last Haldol at 3 pm yesterday Family History: Unchanged from Admission Social History: Unchanged from Admission Past Medical History: Unchanged from Admission Objective Active Medications: Acetaminophen (Tylenol Tab*) 650 mg PO Q6H PRN PRN Reason: FEVER/PAIN Aspirin (Aspirin Ec Tab*) 81 mg PO DAILY [facility] Last Admin: 10/11/17 10:15 Dose: 81 mg Atorvastatin Calcium (Lipitor*) 40 mg PO BID [facility] Last Admin: 10/11/17 23:31 Dose: Not Given Docusate Sodium (Colace Liq*) 100 mg PO BID [facility] Last Admin: 10/11/17 23:32 Dose: Not Given Haloperidol Lactate (Haldol Inj Iv/Im*) 5 mg IM Q6H PRN PRN Reason: AGITATION Last Admin: 10/11/17 15:05 Dose: 5 mg Heparin Sodium (Porcine) (Heparin Vial(*)) 5,000 units SUBCUT Q8HR [facility] Last Admin: 10/12/17 07:22 Dose: Not Given Hydralazine HCl (Apresoline Iv*) 10 mg IV Q4H PRN PRN Reason: Systolic >170 Insulin Human Lispro (Humalog*) 0 units SUBCUT ACHS [facility] PRN Reason: Protocol Last Admin: 10/11/17 23:32 Dose: Not Given Levothyroxine Sodium (Synthroid Tab*) 50 mcg PO QAM@0600 [facility] Last Admin: 10/12/17 07:22 Dose: Not Given Melatonin (Melatonin (Nf)) 3 mg PO BEDTIME [facility] PRN Reason: Protocol Last Admin: 10/11/17 21:57 Dose: 3 mg Mirtazapine (Remeron Tab*) 15 mg PO BEDTIME PRN PRN Reason: SLEEP Last Admin: 10/11/17 21:57 Dose: 15 mg Omeprazole (Prilosec Cap*) 20 mg PO DAILY@0600 [facility] Last Admin: 10/12/17 07:22 Dose: Not Given Prednisolone Acetate (Pred Forte 1%*) 1 drop LEFT EYE DAILY [facility] Last Admin: 10/11/17 10:16 Dose: 1 drop Sertraline HCl (Zoloft*) 150 mg PO DAILY [facility] Last Admin: 10/11/17 10:17 Dose: 150 mg Sotalol HCl (Betapace Tab*) 80 mg PO BID [facility] Last Admin: 10/11/17 23:32 Dose: Not Given Tamsulosin HCl (Flomax Cap*) 0.4 mg PO DAILY [facility] Last Admin: 10/11/17 10:19 Dose: 0.4 mg Vital Signs 10/11/17 10/11/17 10/11/17 14:25 17:47 21:30 Temperature 97.3 F Pulse Rate 63 71 Respiratory 16 16 16 Rate Blood Pressure 119/67 139/71 (mmHg) O2 Sat by Pulse 98 97 97 Oximetry 10/12/17 10/12/17 06:40 07:15 Temperature 97.4 F Pulse Rate 69 Respiratory 17 Rate Blood Pressure 216/70 141/76 (mmHg) O2 Sat by Pulse 89 Oximetry Oxygen Devices in Use Now: None Neurology Exam: General: Very difficult exam. The patient was difficult to wake up, although he did arouse. Non-compliant with exam HEENT: Normocephalic/atraumatic, forcefully kept eyes closed. Chest: Clear to auscultation bilaterally Cardiovascular: Regular rate and rhythm Abdomen: Soft Extremities: No cyanosis Neurological Findings: Very somnolent as noted Speech: He moaned when I woke him, said "no" several times. Cranial Nerve: Refused to comply. I could not forcefully open his eyes. Face appears symmetric. Would not open mouth Motor: Spontaneously moving all extremities. Would not comply with exam Sensation: W/D to pain X 4 Deep Tendon Reflex: Symmetric. Babinski: W/D bilaterally No resting tremors Result Diagrams: 10/10/17 06:55 10/08/17 05:22 Additional Lab and Data: . Diagnostic Imaging: . Assessment/Plan Assessment: 87 year old with history of dementia admitted with superimposed delirium of unknown source. The patient had been getting very poor sleep prior to admission and fell Delirium on Dementia: While he is refusing most medications, he did take Melatonin and Remeron last night and slept throughout the night. He had no agitation per his sitter. My suspicion remains that his acute decompensation prior to admission was related to the fact that he had not slept and been up for some time. No source for his delirium has been identified. Yolis Garcia and I had a long discussion with his son and daughter yesterday. At this point, the options are to keep him here and continue to adjust medications, for them to take him home and care for him there or transfer to a geriatric [facility] facility for further medication adjustment. They are amenable to exploring the geriatric psych option. We will have the social staff worker check on that today. Continue the Remeron. It is my hope that this medication might help him sleep on a regular basis through the night which could help his delirium. He is now off of Seroquel, did not respond as we had hoped. Continue prn Haldol for acute agitation. Patient refusing some meds, including stool softener. He has not had a BM in some time. Continue to encourage medication. The plan is evolving and I am hopeful that later today, we can decide on a disposition. I will be off service at noon, Dr. Gaitan will be covering until [address] Simpson (his primary outpatient neurologist who knows him well) well be coming on service. I have already spoken with Dr. Simpson extensively about the patient and she is fully aware of the issues.
[2017-10-12] MEDS: Sertraline* 100 MG TAB PO SCH (08:43)
[2017-10-12] MEDS: PREDNISOLONE 1% LEFT EYE SCH (08:44)
[2017-10-12] MEDS: Docusate LIQ* 100 MG/10 ML UDC PO SCH ×2 (08:44→21:02)
[2017-10-12] MEDS: Insulin LISPRO* 1 UNITS UNIT SUBCUT SCH ×4 (08:44→21:01)
[2017-10-12] MEDS: Sotalol TAB* 80 MG PO SCH ×2 (08:45→21:02)
[2017-10-12] MEDS: Aspirin EC TAB* 81 MG TAB.EC PO SCH (08:45)
[2017-10-12] MEDS: Atorvastatin* 40 MG TAB PO SCH ×2 (08:45→21:02)
[2017-10-12] MEDS: Magnesium Hydroxide LIQ* 30 ML UDC PO SCH (08:46)
[2017-10-12] MEDS: Tamsulosin CAP* 0.4 MG PO SCH (08:47)
--- NOTE | 2017-10-12 08:56 | PN ---
Subjective Date of Service: 10/12/17 Interval History: Patient seen and examined. Per RN and notes, patient had more restful night with less agitation. Did not require PRN haldol. Patient appears to be resting this AM. Aid in room, patient taking breakfast without issue. Remains alert but confused. Family History: Unchanged from Admission Social History: Unchanged from Admission Past Medical History: Unchanged from Admission Objective Active Medications: Acetaminophen (Tylenol Tab*) 650 mg PO Q6H PRN PRN Reason: FEVER/PAIN Aspirin (Aspirin Ec Tab*) 81 mg PO DAILY [facility] Last Admin: 10/12/17 08:45 Dose: 81 mg Atorvastatin Calcium (Lipitor*) 40 mg PO BID [facility] Last Admin: 10/12/17 08:45 Dose: 40 mg Docusate Sodium (Colace Liq*) 100 mg PO BID [facility] Last Admin: 10/12/17 08:44 Dose: 100 mg Haloperidol Lactate (Haldol Inj Iv/Im*) 5 mg IM Q6H PRN PRN Reason: AGITATION Last Admin: 10/11/17 15:05 Dose: 5 mg Heparin Sodium (Porcine) (Heparin Vial(*)) 5,000 units SUBCUT Q8HR [facility] Last Admin: 10/12/17 07:22 Dose: Not Given Hydralazine HCl (Apresoline Iv*) 10 mg IV Q4H PRN PRN Reason: Systolic >170 Insulin Human Lispro (Humalog*) 0 units SUBCUT ACHS [facility] PRN Reason: Protocol Last Admin: 10/12/17 08:44 Dose: 1 units Levothyroxine Sodium (Synthroid Tab*) 50 mcg PO QAM@0600 [facility] Last Admin: 10/12/17 07:22 Dose: Not Given Melatonin (Melatonin (Nf)) 3 mg PO BEDTIME [facility] PRN Reason: Protocol Last Admin: 10/11/17 21:57 Dose: 3 mg Mirtazapine (Remeron Tab*) 15 mg PO BEDTIME PRN PRN Reason: SLEEP Last Admin: 10/11/17 21:57 Dose: 15 mg Omeprazole (Prilosec Cap*) 20 mg PO DAILY@0600 [facility] Last Admin: 10/12/17 07:22 Dose: Not Given Prednisolone Acetate (Pred Forte 1%*) 1 drop LEFT EYE DAILY [facility] Last Admin: 10/12/17 08:44 Dose: 1 drop Sertraline HCl (Zoloft*) 150 mg PO DAILY [facility] Last Admin: 10/12/17 08:43 Dose: 150 mg Sotalol HCl (Betapace Tab*) 80 mg PO BID [facility] Last Admin: 10/12/17 08:45 Dose: 80 mg Tamsulosin HCl (Flomax Cap*) 0.4 mg PO DAILY [facility] Last Admin: 10/12/17 08:47 Dose: 0.4 mg Vital Signs - 8 hr 10/12/17 10/12/17 06:40 07:15 Temperature 97.4 F Pulse Rate 69 Respiratory 17 Rate Blood Pressure 216/70 141/76 (mmHg) O2 Sat by Pulse 89 Oximetry Oxygen Devices in Use Now: None Appearance: Alert, NAD Eyes: No Scleral Icterus, PERRLA Ears/Nose/Mouth/Throat: Mucous Membranes Moist Neck: Trachea Midline Respiratory: Symmetrical Chest Expansion and Respiratory Effort, Clear to Auscultation Cardiovascular: NL Sounds; No Murmurs; No JVD, - - irregular, rate controlled Abdominal: NL Sounds; No Tenderness; No Distention Extremities: No Edema, No Clubbing, Cyanosis Neurological: - - confused at baseline Nutrition: Taking PO's Result Diagrams: 10/10/17 06:55 10/08/17 05:22 Additional Lab and Data: . Diagnostic Imaging: . Assess/Plan/Problems-Billing Assessment: This is an 87 year old male with longstanding hx of dementia that has presented with acute delerium of unclear etiology - exac of dementia vs. metabolic being managed medically for symptom control. 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 EEG without epileptiform discharges - Lengthy discussion with family and Dr. Telles re: dispo. Family would like to bring him home but patient may benefit from short stay at [facility] in [place], [place] (2) Dementia Code(s): F03.90 - UNSPECIFIED DEMENTIA WITHOUT BEHAVIORAL DISTURBANCE SNOMED Code(s): 37009363 Comment: - progressive mixed - supportive care, meds as above (3) CAD (coronary artery disease) Code(s): I25.10 - ATHSCL HEART DISEASE OF [place] CORONARY ARTERY W/O ANG PCTRS SNOMED Code(s): 52073793 Comment: - Stable, continue atorvastatin and aspirin (4) Diabetes Code(s): E11.9 - TYPE 2 DIABETES MELLITUS WITHOUT COMPLICATIONS SNOMED Code(s) : 08101433 Comment: - BG well controlled with lispro SSI coverage - Hold januvia and glipizide (5) Hypertension Code(s): I10 - ESSENTIAL (PRIMARY) HYPERTENSION SNOMED Code(s): 47713343 Comment: - SBP 120's last 24 h - Continue sotalol for afib (6) Full code status Code(s): Z78.9 - OTHER SPECIFIED HEALTH STATUS SNOMED Code(s): 765956930 Comment: Status and Disposition: Dispo: Home vs. [facility]. Will monitor today and discuss again with family and CM.
[2017-10-12] MEDS: CMCS:Melatonin (NF) 3 MG TAB PO SCH (21:02)
[2017-10-13] MEDS: Heparin VIAL(*) 5000 UNITS/ML VIAL (FIVE THOUSAND) SUBCUT SCH ×3 (05:52→21:33)
[2017-10-13] MEDS: Levothyroxine TAB* 50 MCG TAB PO SCH (05:52)
[2017-10-13] MEDS: Omeprazole CAP* 20 MG PO SCH (05:52)
[2017-10-13] MEDS: Docusate LIQ* 100 MG/10 ML UDC PO SCH ×2 (08:41→21:10)
[2017-10-13] MEDS: PREDNISOLONE 1% LEFT EYE SCH (08:41)
[2017-10-13] MEDS: Sertraline* 100 MG TAB PO SCH (08:42)
[2017-10-13] MEDS: Sotalol TAB* 80 MG PO SCH ×2 (08:42→21:09)
[2017-10-13] MEDS: Tamsulosin CAP* 0.4 MG PO SCH (08:42)
[2017-10-13] MEDS: Aspirin EC TAB* 81 MG TAB.EC PO SCH (08:42)
[2017-10-13] MEDS: Atorvastatin* 40 MG TAB PO SCH ×2 (08:42→21:10)
[2017-10-13] MEDS: Insulin LISPRO* 1 UNITS UNIT SUBCUT SCH ×4 (09:04→21:11)
--- NOTE | 2017-10-13 11:16 | PN ---
Subjective Date of Service: 10/13/17 Interval History: Mr. Mccann reports that he is doing well. He awakens easily to voice and follows commands. He remains confused but pleasant. Family History: Unchanged from Admission Social History: Unchanged from Admission Past Medical History: Unchanged from Admission Objective Active Medications: Acetaminophen (Tylenol Tab*) 650 mg PO Q6H PRN Aspirin (Aspirin Ec Tab*) 81 mg PO DAILY [facility] Atorvastatin Calcium (Lipitor*) 40 mg PO BID [facility] Docusate Sodium (Colace Liq*) 100 mg PO BID [facility] Haloperidol Lactate (Haldol Inj Iv/Im*) 5 mg IM Q6H PRN Heparin Sodium (Porcine) (Heparin Vial(*)) 5,000 units SUBCUT Q8HR [facility] Hydralazine HCl (Apresoline Iv*) 10 mg IV Q4H PRN Insulin Human Lispro (Humalog*) 0 units SUBCUT ACHS [facility] Levothyroxine Sodium (Synthroid Tab*) 50 mcg PO QAM@0600 [facility] Melatonin (Melatonin (Nf)) 3 mg PO BEDTIME [facility] Mirtazapine (Remeron Tab*) 15 mg PO BEDTIME PRN Omeprazole (Prilosec Cap*) 20 mg PO DAILY@0600 [facility] Prednisolone Acetate (Pred Forte 1%*) 1 drop LEFT EYE DAILY [facility] Sertraline HCl (Zoloft*) 150 mg PO DAILY [facility] Sotalol HCl (Betapace Tab*) 80 mg PO BID [facility] Tamsulosin HCl (Flomax Cap*) 0.4 mg PO DAILY [facility] Vital Signs: Temp Pulse Resp BP Pulse Ox 97.6 F 62 16 105/64 96 10/13/17 07:39 10/13/17 07:39 10/13/17 07:53 10/13/17 07:39 10/13/17 07:47 Oxygen Devices in Use Now: None Appearance: Elderly male lying in bed in NAD Eyes: No Scleral Icterus Ears/Nose/Mouth/Throat: Mucous Membranes Moist Neck: Trachea Midline Respiratory: Symmetrical Chest Expansion and Respiratory Effort, Clear to Auscultation Cardiovascular: NL Sounds; No Murmurs; No JVD, No Edema Abdominal: NL Sounds; No Tenderness; No Distention Lymphatic: No Cervical Adenopathy Extremities: No Edema Skin: No Rash or Ulcers Neurological: NL Muscle Strength and Tone, - - Alert, not oriented to self, pleasant and cooperative Nutrition: Taking PO's Result Diagrams: 10/10/17 06:55 10/08/17 05:22 Additional Lab and Data: . Diagnostic Imaging: . Assess/Plan/Problems-Billing Assessment: Mr. Mccann is an 87 year old male with longstanding hx of dementia that has presented with acute delirium of unclear etiology - perhaps secondary to sleep deprivation. 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 Simpson (who follows him outpatient) will see him today. - MRI and CT brain without acute abnormality. EEG without epileptiform discharges - Lengthy discussion with family and Dr. Telles re: dispo. Family would like to bring him home but patient may benefit from short stay at [facility] in [place], [place] (2) Dementia Comment: - progressive mixed - supportive care, meds as above (3) Diabetes Comment: - BG well controlled with lispro SSI coverage - Hold januvia and glipizide (4) Hypothyroidism Comment: - Continue levothyroxine. (5) Hypertension Comment: - SBP 90-160s - Continue sotalol as tolerated (6) CAD (coronary artery disease) Comment: - Stable, continue atorvastatin and aspirin (7) SVT (supraventricular tachycardia) Comment: - Continue sotalol, no history of afib noted. (8) DVT prophylaxis Comment: - Heparin SQ. (9) Full code status Comment: Status and Disposition: Dispo: Home vs. [facility].
--- NOTE | 2017-10-13 14:30 | PN ---
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 He had visited as an outpatient recently and decided to add Seroquel low dose at bedtime which had yet to be started prior to admission. A fall along with his progressive decline prompted admission. Since in hospital initially Seroquel was tried. He required Haldol as needed. The medications were changed to include melatonin and Remeron at bedtime and his last dose of Haldol was October 11. He is still on sertraline 150 mg during the day. In workup of alternative causes for decline, his MRI of the brain showed no evidence of a new stroke. This film was reviewed directly. EEG showed slowing but no epileptiform activity. He did initially have a white count which was elevated at 11.5 and then improved with no evidence of infection found in his urine or chest x-ray. He had B12 which was 292 with folate greater than 20 and normal TSH. Examination: Dr. Mccann's blood pressure was 102/51 with pulse of 55, respiratory rate 21, saturation 96%, temperature 97.6 degrees Fahrenheit measured orally. He had a regular cardiac rhythm. His lungs were clear to auscultation. He was awake, he was distractible. He seemed to recognize me but could not come up with my name. He did not know he was in hospital. He was able to participate in a basic examination. He had full extraocular movements with some saccadic intrusions. He has full vidales to confrontation. His facial expression was symmetric. There was no dysarthria. He moves slowly. There was no pronator drift. He gave good strength in his arms and legs and participated in strength but often needed demonstration of movement. His reflexes continued to be 2+ in the upper extremities and knees, 1+ at the ankles. He was mobilized from chair to bed with a gait belt and assist. MAR was reviewed. 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 He is now sleeping through the night with mirtazapine and melatonin. Hopefully with continued sleep, we will see improvement in behavior. I will ask for physical therapy to get involved and work on further mobilization. Disposition is yet to be determined, at first it was questioned as to whether he could go to a rehab facility. Because of ongoing psychiatric issues, the potential for psychiatric unit out of the [facility] was raised. His daughter and son have been full caregivers; however his son is going away for a vacation raising concern of his discharge to home with only one caregiver if mental status and behavior do not improve significantly. Over 50 minutes was spent in direct [id number] patient care, over 50% of the time was spent in education regarding differential diagnosis, treatment, potential disposition, the uncertainty and further observation and evaluation this weekend. All questions were answered. [id number]/[facility] #: [id number] JONG
[2017-10-13] MEDS: CMCS:Melatonin (NF) 3 MG TAB PO SCH (21:10)
[2017-10-14] MEDS: Levothyroxine TAB* 50 MCG TAB PO SCH (06:14)
[2017-10-14] MEDS: Omeprazole CAP* 20 MG PO SCH (06:14)
[2017-10-14] MEDS: Heparin VIAL(*) 5000 UNITS/ML VIAL (FIVE THOUSAND) SUBCUT SCH ×3 (06:14→23:37)
[2017-10-14] MEDS: Insulin LISPRO* 1 UNITS UNIT SUBCUT SCH ×3 (07:58→17:14)
[2017-10-14] MEDS: Haloperidol INJ IV/IM* 5 MG/ML AMP IM PRN ×2 (09:41→18:41)
[2017-10-14] MEDS: Sertraline* 100 MG TAB PO SCH ×2 (09:49→11:16)
[2017-10-14] MEDS: Atorvastatin* 40 MG TAB PO SCH ×3 (09:49→23:27)
[2017-10-14] MEDS: Tamsulosin CAP* 0.4 MG PO SCH ×2 (09:49→11:16)
[2017-10-14] MEDS: Aspirin EC TAB* 81 MG TAB.EC PO SCH (09:49)
[2017-10-14] MEDS: Sotalol TAB* 80 MG PO SCH ×3 (09:49→23:27)
[2017-10-14] MEDS: Docusate LIQ* 100 MG/10 ML UDC PO SCH ×3 (09:49→23:28)
[2017-10-14] MEDS: PREDNISOLONE 1% LEFT EYE SCH ×2 (09:52→11:17)
--- NOTE | 2017-10-14 15:39 | PN ---
Subjective Date of Service: 10/14/17 Interval History: Mr. Mccann denies any complaint today but is very confused. Nursing staff report that he was agitated this morning and required haldol x 1. His daugther notes that he has been a bit more agitated through the day today than he was yesterday. Family History: Unchanged from Admission Social History: Unchanged from Admission Past Medical History: Unchanged from Admission Objective Active Medications: Acetaminophen (Tylenol Tab*) 650 mg PO Q6H PRN Aspirin (Aspirin Ec Tab*) 81 mg PO DAILY [facility] Atorvastatin Calcium (Lipitor*) 40 mg PO BID [facility] Docusate Sodium (Colace Liq*) 100 mg PO BID [facility] Haloperidol Lactate (Haldol Inj Iv/Im*) 2 mg IM Q6H PRN Heparin Sodium (Porcine) (Heparin Vial(*)) 5,000 units SUBCUT Q8HR [facility] Insulin Human Lispro (Humalog*) 0 units SUBCUT ACHS [facility] Levothyroxine Sodium (Synthroid Tab*) 50 mcg PO QAM@0600 [facility] Melatonin (Melatonin (Nf)) 3 mg PO BEDTIME [facility] Mirtazapine (Remeron Tab*) 15 mg PO BEDTIME [facility] Omeprazole (Prilosec Cap*) 20 mg PO DAILY@0600 [facility] Prednisolone Acetate (Pred Forte 1%*) 1 drop LEFT EYE DAILY [facility] Sertraline HCl (Zoloft*) 150 mg PO DAILY [facility] Sotalol HCl (Betapace Tab*) 80 mg PO BID [facility] Tamsulosin HCl (Flomax Cap*) 0.4 mg PO DAILY [facility] Vital Signs: Temp Pulse Resp BP Pulse Ox 96.9 F 61 16 109/57 93 10/14/17 07:22 10/14/17 07:22 10/14/17 07:59 10/14/17 07:22 10/14/17 07:59 Oxygen Devices in Use Now: None Appearance: Elderly male sitting up in chair in NAD Eyes: No Scleral Icterus Ears/Nose/Mouth/Throat: NL Teeth, Lips, Gums Neck: NL Appearance and Movements; NL JVP Respiratory: Symmetrical Chest Expansion and Respiratory Effort, Clear to Auscultation Cardiovascular: NL Sounds; No Murmurs; No JVD, No Edema Abdominal: NL Sounds; No Tenderness; No Distention Lymphatic: No Cervical Adenopathy Extremities: No Edema Skin: No Rash or Ulcers Neurological: NL Muscle Strength and Tone, - - Alert, not oriented to self Result Diagrams: 10/10/17 06:55 10/08/17 05:22 Additional Lab and Data: . Diagnostic Imaging: . Assess/Plan/Problems-Billing Assessment: Mr. Mccann is an 87 year old male with longstanding hx of dementia that has presented with acute delirium of unclear etiology - perhaps secondary to sleep deprivation. - Patient Problems (1) Altered mental status Comment: - Required haldol x 1 today. Mirtazapine had not been given for past two nights as it was listed as prn. - Continue mirtazapine and melatonin on scheduled basis. - Appreciate support from neurology, no changes to medication regimen at this time. 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 EEG without epileptiform discharges - Lengthy discussion with family. Family would like to bring him home but patient may benefit from short stay at [facility] in [place], [place]. (2) Dementia Comment: - progressive mixed - supportive care, meds as above (3) Diabetes Comment: - BG well controlled with lispro SSI coverage - Hold januvia and glipizide (4) Hypothyroidism Comment: - Continue levothyroxine. (5) Hypertension Comment: - SBP 90-160s - Continue sotalol as tolerated (6) CAD (coronary artery disease) Comment: - Stable, continue atorvastatin and aspirin (7) SVT (supraventricular tachycardia) Comment: - Continue sotalol, no history of afib noted. (8) DVT prophylaxis Comment: - Heparin SQ. (9) Full code status Comment: Status and Disposition: Dispo: Home vs. [facility].
--- NOTE | 2017-10-14 21:28 | PN ---
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 He did have some sleep last night. In review of his medications, he has not received he mirtazapine since the . Mr. Mccann has no new concerns on today's visit. He did participate in giving himself ice cream which had pills in it, when I was in the room and showed some of his premorbid personality in discussions during that period of time. His blood pressure most recently was 109/57, his pulse was 93, respiratory rate 16, heart rate 61, temperature 96.9 degrees Fahrenheit. MAR reviewed. 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 No alternatives have been found. Mirtazapine was added to his regimen and it seemed to help; however, he has not received it the last couple of nights. He has been receiving melatonin, we will add the mirtazapine back on board. He has been in the chair more. He does need help for assistance from chair to bed and back into the bathroom. I have asked physical therapy to get back involved. There is concern regarding deconditioning and increased stimulants in hospital contributing to clinical status. I discussed disposition at length with daughter, both she and her brother are interested in the geriatric program at [facility]. 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 I discussed case with Shania Guerrero, REVENUE AUDIT CLERK, and our hospitalist. We await input from the city planner. Over 30 minutes was spent in direct [id number] patient care where 50% of the time was spent in education, counseling and coordination of care. [id number]/[facility] #: [id number] JONG
[2017-10-14] MEDS: CMCS:Melatonin (NF) 3 MG TAB PO SCH (23:27)
[2017-10-14] MEDS: Mirtazapine TAB* 15 MG PO SCH (23:28)
[2017-10-15] MEDS: Insulin LISPRO* 1 UNITS UNIT SUBCUT SCH ×4 (01:46→22:36)
[2017-10-15] MEDS: Haloperidol INJ IV/IM* 5 MG/ML AMP IM PRN (02:14)
[2017-10-15] MEDS: Omeprazole CAP* 20 MG PO SCH (05:52)
[2017-10-15] MEDS: Levothyroxine TAB* 50 MCG TAB PO SCH (05:52)
[2017-10-15] MEDS: Heparin VIAL(*) 5000 UNITS/ML VIAL (FIVE THOUSAND) SUBCUT SCH ×3 (05:52→23:09)
[2017-10-15] MEDS: Atorvastatin* 40 MG TAB PO SCH ×2 (12:43→20:02)
[2017-10-15] MEDS: Docusate LIQ* 100 MG/10 ML UDC PO SCH ×3 (12:43→20:02)
[2017-10-15] MEDS: Tamsulosin CAP* 0.4 MG PO SCH (12:43)
[2017-10-15] MEDS: Finasteride TAB* 5 MG PO SCH ×2 (12:44→12:58)
[2017-10-15] MEDS: Sertraline* 100 MG TAB PO SCH (12:47)
[2017-10-15] MEDS: Sotalol TAB* 80 MG PO SCH ×2 (12:55→20:02)
[2017-10-15] MEDS: Aspirin EC TAB* 81 MG TAB.EC PO SCH (12:55)
--- NOTE | 2017-10-15 19:28 | PN ---
Subjective Date of Service: 10/15/17 Interval History: Seen with son present Pt intermittently grimacing but then back to sleep He is denying pain Family History: Unchanged from Admission Social History: Unchanged from Admission Past Medical History: Unchanged from Admission Objective Active Medications: Acetaminophen (Tylenol Tab*) 650 mg PO Q6H PRN PRN Reason: FEVER/PAIN Aspirin (Aspirin Ec Tab*) 81 mg PO DAILY [facility] Last Admin: 10/15/17 12:55 Dose: Not Given Atorvastatin Calcium (Lipitor*) 40 mg PO BID [facility] Last Admin: 10/15/17 12:43 Dose: 40 mg Docusate Sodium (Colace Liq*) 100 mg PO BID [facility] Last Admin: 10/15/17 12:58 Dose: Not Given Finasteride (Proscar Tab*) 5 mg PO DAILY [facility] Last Admin: 10/15/17 12:58 Dose: Not Given Haloperidol Lactate (Haldol Inj Iv/Im*) 2 mg IM Q6H PRN PRN Reason: AGITATION Last Admin: 10/15/17 02:14 Dose: 2 mg Heparin Sodium (Porcine) (Heparin Vial(*)) 5,000 units SUBCUT Q8HR [facility] Last Admin: 10/15/17 12:58 Dose: Not Given Insulin Human Lispro (Humalog*) 0 units SUBCUT ACHS [facility] PRN Reason: Protocol Last Admin: 10/15/17 18:15 Dose: Not Given Levothyroxine Sodium (Synthroid Tab*) 50 mcg PO QAM@0600 [facility] Last Admin: 10/15/17 05:52 Dose: Not Given Melatonin (Melatonin (Nf)) 3 mg PO BEDTIME [facility] PRN Reason: Protocol Last Admin: 10/14/17 23:27 Dose: 3 mg Mirtazapine (Remeron Tab*) 15 mg PO BEDTIME [facility] Last Admin: 10/14/17 23:28 Dose: 15 mg Omeprazole (Prilosec Cap*) 20 mg PO DAILY@0600 [facility] Last Admin: 10/15/17 05:52 Dose: Not Given Sertraline HCl (Zoloft*) 150 mg PO DAILY [facility] Last Admin: 10/15/17 12:47 Dose: 150 mg Sotalol HCl (Betapace Tab*) 80 mg PO BID [facility] Last Admin: 10/15/17 12:55 Dose: Not Given Tamsulosin HCl (Flomax Cap*) 0.4 mg PO DAILY [facility] Last Admin: 10/15/17 12:43 Dose: 0.4 mg Vital Signs - 8 hr 10/15/17 15:59 Temperature 97.3 F Pulse Rate 71 Respiratory 16 Rate Blood Pressure 111/56 (mmHg) O2 Sat by Pulse 95 Oximetry Oxygen Devices in Use Now: None Appearance: ill appearing Eyes: No Scleral Icterus Ears/Nose/Mouth/Throat: Clear Oropharnyx Neck: NL Appearance and Movements; NL JVP, Trachea Midline Respiratory: Symmetrical Chest Expansion and Respiratory Effort, Clear to Auscultation Cardiovascular: RRR Abdominal: NL Sounds; No Tenderness; No Distention Lymphatic: No Cervical Adenopathy Extremities: No Edema Skin: No Rash or Ulcers Neurological: - - AOx0 Result Diagrams: 10/10/17 06:55 10/08/17 05:22 Additional Lab and Data: . Diagnostic Imaging: . Assess/Plan/Problems-Billing Assessment: Mr. Mccann is an 87 year old male with longstanding hx of dementia that has presented with acute delirium of unclear etiology - Patient Problems (1) Altered mental status Comment: - Continue mirtazapine and melatonin on scheduled basis. - Appreciate support from neurology, no changes to medication regimen at this time. 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 No acute process identified, imaging normal, electrolytes normal, no evidence of infection - MRI and CT brain without acute abnormality. EEG without epileptiform discharges - Family would like to bring him home but patient may benefit from short stay at [facility] in [place], [place] where there is currently no availability (2) Dementia Current Visit: Yes Status: Acute Code(s): F03.90 - UNSPECIFIED DEMENTIA WITHOUT BEHAVIORAL DISTURBANCE SNOMED Code(s): 79230829 Comment: - progressive mixed - supportive care, meds as above (3) Diabetes Current Visit: Yes Status: Acute Code(s): E11.9 - TYPE 2 DIABETES MELLITUS WITHOUT COMPLICATIONS SNOMED Code(s): 60468984 Comment: - BG well controlled with lispro SSI coverage - Hold januvia and glipizide (4) Hypertension Current Visit: Yes Status: Acute Code(s): I10 - ESSENTIAL (PRIMARY) HYPERTENSION SNOMED Code(s): 35110251 Comment: - Continue sotalol as tolerated (5) SVT (supraventricular tachycardia) Current Visit: Yes Status: Acute Code(s): I47.1 - SUPRAVENTRICULAR TACHYCARDIA SNOMED Code(s): 8846583 Comment: - Continue sotalol, no history of afib noted. (6) DVT prophylaxis Current Visit: No Status: Acute Code(s): GHC6672 - SNOMED Code(s): 409464812 Comment: - Heparin SQ. Status and Disposition: .
[2017-10-15] MEDS: CMCS:Melatonin (NF) 3 MG TAB PO SCH (20:01)
[2017-10-15] MEDS: Mirtazapine TAB* 15 MG PO SCH (20:02)
[2017-10-16] MEDS: Heparin VIAL(*) 5000 UNITS/ML VIAL (FIVE THOUSAND) SUBCUT SCH ×3 (07:24→22:31)
[2017-10-16] MEDS: Omeprazole CAP* 20 MG PO SCH (07:25)
[2017-10-16] MEDS: Levothyroxine TAB* 50 MCG TAB PO SCH (07:25)
[2017-10-16] MEDS: Sertraline* 100 MG TAB PO SCH (10:09)
[2017-10-16] MEDS: Aspirin EC TAB* 81 MG TAB.EC PO SCH (10:09)
[2017-10-16] MEDS: Docusate LIQ* 100 MG/10 ML UDC PO SCH ×2 (10:09→22:32)
[2017-10-16] MEDS: Tamsulosin CAP* 0.4 MG PO SCH (10:09)
[2017-10-16] MEDS: Atorvastatin* 40 MG TAB PO SCH ×2 (10:09→22:32)
[2017-10-16] MEDS: Sotalol TAB* 80 MG PO SCH ×2 (10:09→22:32)
[2017-10-16] MEDS: Finasteride TAB* 5 MG PO SCH (10:09)
[2017-10-16] MEDS: Insulin LISPRO* 1 UNITS UNIT SUBCUT SCH ×4 (10:15→22:45)
--- NOTE | 2017-10-16 16:33 | PN ---
Subjective Date of Service: 10/16/17 Interval History: Seen with daughter at bedside No haldol overnight Improved participation and ability with PT. Ambulated with walker. Family History: Unchanged from Admission Social History: Unchanged from Admission Past Medical History: Unchanged from Admission Objective Active Medications: Acetaminophen (Tylenol Tab*) 650 mg PO Q6H PRN PRN Reason: FEVER/PAIN Aspirin (Aspirin Ec Tab*) 81 mg PO DAILY [facility] Last Admin: 10/16/17 10:09 Dose: 81 mg Atorvastatin Calcium (Lipitor*) 40 mg PO BID [facility] Last Admin: 10/16/17 10:09 Dose: 40 mg Docusate Sodium (Colace Liq*) 100 mg PO BID [facility] Last Admin: 10/16/17 10:09 Dose: 100 mg Finasteride (Proscar Tab*) 5 mg PO DAILY [facility] Last Admin: 10/16/17 10:09 Dose: 5 mg Haloperidol Lactate (Haldol Inj Iv/Im*) 2 mg IM Q6H PRN PRN Reason: AGITATION Last Admin: 10/15/17 02:14 Dose: 2 mg Heparin Sodium (Porcine) (Heparin Vial(*)) 5,000 units SUBCUT Q8HR [facility] Last Admin: 10/16/17 13:06 Dose: 5,000 units Insulin Human Lispro (Humalog*) 0 units SUBCUT ACHS [facility] PRN Reason: Protocol Last Admin: 10/16/17 13:06 Dose: 1 units Levothyroxine Sodium (Synthroid Tab*) 50 mcg PO QAM@0600 [facility] Last Admin: 10/16/17 07:25 Dose: 50 mcg Melatonin (Melatonin (Nf)) 3 mg PO BEDTIME [facility] PRN Reason: Protocol Last Admin: 10/15/17 20:01 Dose: 3 mg Mirtazapine (Remeron Tab*) 15 mg PO BEDTIME [facility] Last Admin: 10/15/17 20:02 Dose: 15 mg Omeprazole (Prilosec Cap*) 20 mg PO DAILY@0600 [facility] Last Admin: 10/16/17 07:25 Dose: 20 mg Sertraline HCl (Zoloft*) 150 mg PO DAILY [facility] Last Admin: 10/16/17 10:09 Dose: 150 mg Sotalol HCl (Betapace Tab*) 80 mg PO BID [facility] Last Admin: 10/16/17 10:09 Dose: 80 mg Tamsulosin HCl (Flomax Cap*) 0.4 mg PO DAILY [facility] Last Admin: 10/16/17 10:09 Dose: 0.4 mg Vital Signs - 8 hr 10/16/17 10/16/17 10/16/17 10:17 11:46 15:52 Temperature 97.4 F 98.2 F Pulse Rate 70 54 Respiratory 16 20 Rate Blood Pressure 100/64 119/64 (mmHg) O2 Sat by Pulse 97 98 94 Oximetry Oxygen Devices in Use Now: None Appearance: asleep Ears/Nose/Mouth/Throat: - - dry mm Respiratory: Symmetrical Chest Expansion and Respiratory Effort, Clear to Auscultation Cardiovascular: RRR Neurological: - - aox0 Result Diagrams: 10/10/17 06:55 10/08/17 05:22 Additional Lab and Data: . Diagnostic Imaging: . Assess/Plan/Problems-Billing Assessment: Mr. Mccann is an 87 year old male with longstanding hx of dementia that has presented with acute delirium of unclear etiology - Patient Problems (1) Altered mental status Comment: Increased stability over last 24 hours - Continue mirtazapine and melatonin on scheduled basis. - Appreciate support from neurology, no changes to medication regimen at this time. 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 No acute process identified, imaging normal, electrolytes normal, no evidence of infection - MRI and CT brain without acute abnormality. EEG without epileptiform discharges -[facility] facility in [place] may be a goo dlocation but unclear if they have PT aswell. They are also currently full. Requests also sent to rehab facilities which may be of benefit now that pt has increased participation with and improvement with PT. (2) Dementia Current Visit: Yes Status: Acute Code(s): F03.90 - UNSPECIFIED DEMENTIA WITHOUT BEHAVIORAL DISTURBANCE SNOMED Code(s): 24343284 Comment: - progressive mixed - supportive care, meds as above (3) Diabetes Current Visit: Yes Status: Acute Code(s): E11.9 - TYPE 2 DIABETES MELLITUS WITHOUT COMPLICATIONS SNOMED Code(s): 82849459 Comment: - BG well controlled with lispro SSI coverage - Hold januvia and glipizide (4) Hypertension Current Visit: Yes Status: Acute Code(s): I10 - ESSENTIAL (PRIMARY) HYPERTENSION SNOMED Code(s): 86878951 Comment: - Continue sotalol as tolerated (5) SVT (supraventricular tachycardia) Current Visit: Yes Status: Acute Code(s): I47.1 - SUPRAVENTRICULAR TACHYCARDIA SNOMED Code(s): 5594096 Comment: - Continue sotalol, no history of afib noted. (6) DVT prophylaxis Current Visit: No Status: Acute Code(s): PHO2158 - SNOMED Code(s): 894369450 Comment: - Heparin SQ. Status and Disposition: Dispo planning. Son who delivers large amount of care is out of country for next 2 weeks. [facility] [place] with plan to return home if physical strength improves with rehab. Dementia and behavioral disturbances are not new to his home care situation.
[2017-10-16] MEDS: CMCS:Melatonin (NF) 3 MG TAB PO SCH (22:32)
[2017-10-16] MEDS: Mirtazapine TAB* 15 MG PO SCH (22:33)
[2017-10-17 05:37] LABS: ABS Basophils 0.1 10^3/ul (0-0.2); ABS Eosinophils 0.1 10^3/ul (0-0.6); ABS Monocytes 1.1 10^3/ul (0-0.8); ABS Neutrophils 5.8 10^3/ul (1.5-7.7); ABS Nucleated RBC 0 10^3/ul; Eosinophil % 0.9 % (0-6); Hematocrit 42 % (42-52); Hemoglobin 14.1 g/dl (14.0-18.0); Mean Corpuscular HGB Conc 34 g/dl (31-36); Mean Corpuscular Hemoglobin 32 pg (27-31); Mean Corpuscular Volume 95 fL (80-94); Mean Platelet Volume 9.3 um3 (7.4-10.4); Nucleated Red Blood Cells % 0.1; Platelet Count 141 10^3/ul (150-450); Red Blood Count 4.38 10^6/ul (4.0-5.4); Red Cell Distribution Width 14 % (10.5-15); White Blood Count 9.1 10^3/ul (3.5-10.8)
[2017-10-17] MEDS: Omeprazole CAP* 20 MG PO SCH (06:06)
[2017-10-17] MEDS: Levothyroxine TAB* 50 MCG TAB PO SCH (06:06)
[2017-10-17] MEDS: Heparin VIAL(*) 5000 UNITS/ML VIAL (FIVE THOUSAND) SUBCUT SCH ×3 (06:06→20:49)
[2017-10-17] MEDS: Insulin LISPRO* 1 UNITS UNIT SUBCUT SCH ×4 (08:22→20:50)
[2017-10-17] MEDS: Aspirin EC TAB* 81 MG TAB.EC PO SCH ×2 (08:23→08:45)
[2017-10-17] MEDS: Sertraline* 100 MG TAB PO SCH (08:24)
[2017-10-17] MEDS: Sotalol TAB* 80 MG PO SCH ×2 (08:24→20:49)
[2017-10-17] MEDS: Atorvastatin* 40 MG TAB PO SCH ×2 (08:24→20:49)
[2017-10-17] MEDS: Finasteride TAB* 5 MG PO SCH (08:25)
[2017-10-17] MEDS: Docusate LIQ* 100 MG/10 ML UDC PO SCH ×3 (08:29→21:02)
[2017-10-17] MEDS: Tamsulosin CAP* 0.4 MG PO SCH (08:31)
[2017-10-17] MEDS: Haloperidol INJ IV/IM* 5 MG/ML AMP IM PRN ×3 (09:53→21:33)
[2017-10-17] MEDS ORDERED: Haloperidol INJ IV/IM* 5 MG/ML AMP IM ONE (14:45)
--- NOTE | 2017-10-17 17:30 | PN ---
Subjective Date of Service: 10/17/17 Interval History: Had 2 days of improving behavior however became increasingly aggressive today and physically combative required 2 doses haldol despite excellent attempts by staff to calm down Family History: Unchanged from Admission Social History: Unchanged from Admission Past Medical History: Unchanged from Admission Objective Active Medications: Acetaminophen (Tylenol Tab*) 650 mg PO Q6H PRN PRN Reason: FEVER/PAIN Aspirin (Aspirin Ec Tab*) 81 mg PO DAILY [facility] Last Admin: 10/17/17 08:45 Dose: Not Given Atorvastatin Calcium (Lipitor*) 40 mg PO BID [facility] Last Admin: 10/17/17 08:24 Dose: 40 mg Docusate Sodium (Colace Liq*) 100 mg PO BID [facility] Last Admin: 10/17/17 08:29 Dose: 100 mg Finasteride (Proscar Tab*) 5 mg PO DAILY [facility] Last Admin: 10/17/17 08:25 Dose: 5 mg Haloperidol Lactate (Haldol Inj Iv/Im*) 2 mg IM Q6H PRN PRN Reason: AGITATION Last Admin: 10/17/17 09:53 Dose: 2 mg Heparin Sodium (Porcine) (Heparin Vial(*)) 5,000 units SUBCUT Q8HR [facility] Last Admin: 10/17/17 12:20 Dose: 5,000 units Insulin Human Lispro (Humalog*) 0 units SUBCUT ACHS [facility] PRN Reason: Protocol Last Admin: 10/17/17 17:11 Dose: 2 units Levothyroxine Sodium (Synthroid Tab*) 50 mcg PO QAM@0600 [facility] Last Admin: 10/17/17 06:06 Dose: 50 mcg Melatonin (Melatonin (Nf)) 3 mg PO BEDTIME [facility] PRN Reason: Protocol Last Admin: 10/16/17 22:32 Dose: 3 mg Mirtazapine (Remeron Tab*) 15 mg PO BEDTIME [facility] Last Admin: 10/16/17 22:33 Dose: 15 mg Omeprazole (Prilosec Cap*) 20 mg PO DAILY@0600 [facility] Last Admin: 10/17/17 06:06 Dose: 20 mg Sertraline HCl (Zoloft*) 150 mg PO DAILY [facility] Last Admin: 10/17/17 08:24 Dose: 150 mg Sotalol HCl (Betapace Tab*) 80 mg PO BID [facility] Last Admin: 10/17/17 08:24 Dose: 80 mg Tamsulosin HCl (Flomax Cap*) 0.4 mg PO DAILY [facility] Last Admin: 10/17/17 08:31 Dose: 0.4 mg Vital Signs - 8 hr 10/17/17 10/17/17 10/17/17 11:27 11:44 16:01 Temperature 97.7 F 97.8 F Pulse Rate 60 63 Respiratory 16 18 Rate Blood Pressure 77/44 94/52 93/58 (mmHg) O2 Sat by Pulse 97 97 Oximetry 10/17/17 16:30 Temperature Pulse Rate Respiratory Rate Blood Pressure 102/70 (mmHg) O2 Sat by Pulse Oximetry Oxygen Devices in Use Now: None Appearance: sitting in chair, NAD Eyes: No Scleral Icterus, PERRLA Ears/Nose/Mouth/Throat: - - dry MM Neck: NL Appearance and Movements; NL JVP, Trachea Midline Respiratory: Symmetrical Chest Expansion and Respiratory Effort, Clear to Auscultation Cardiovascular: RRR Abdominal: NL Sounds; No Tenderness; No Distention Lymphatic: No Cervical Adenopathy Neurological: - - AOx0 Result Diagrams: 10/17/17 05:03 10/08/17 05:22 Additional Lab and Data: . Diagnostic Imaging: . Assess/Plan/Problems-Billing Assessment: Mr. Mccann is an 87 year old male with longstanding hx of dementia that has presented with acute delirium of unclear etiology - Patient Problems (1) Altered mental status Comment: - Continue mirtazapine and melatonin on scheduled basis. 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 -No acute process identified, imaging normal, electrolytes normal, no evidence of infection - MRI and CT brain without acute abnormality. EEG without epileptiform discharges -[facility] in [place] may be a good location but unclear if they have PT aswell. They are also currently full. Requests also sent to rehab facilities which may be of benefit now that pt has increased participation with and improvement with PT. -Psych consult today appreciated. Discussed with their service who agree [facility] would be apporpriate (2) Dementia Current Visit: Yes Status: Acute Code(s): F03.90 - UNSPECIFIED DEMENTIA WITHOUT BEHAVIORAL DISTURBANCE SNOMED Code(s): 50372164 Comment: - progressive mixed - supportive care, meds as above (3) Diabetes Current Visit: Yes Status: Acute Code(s): E11.9 - TYPE 2 DIABETES MELLITUS WITHOUT COMPLICATIONS SNOMED Code(s): 94049232 Comment: - BG well controlled with lispro SSI coverage - Hold januvia and glipizide (4) Hypertension Current Visit: Yes Status: Acute Code(s): I10 - ESSENTIAL (PRIMARY) HYPERTENSION SNOMED Code(s): 86362781 Comment: - Continue sotalol as tolerated (5) SVT (supraventricular tachycardia) Current Visit: Yes Status: Acute Code(s): I47.1 - SUPRAVENTRICULAR TACHYCARDIA SNOMED Code(s): 0500311 Comment: - Continue sotalol, no history of afib noted. (6) DVT prophylaxis Current Visit: No Status: Acute Code(s): JIJ5831 - SNOMED Code(s): 435119498 Comment: - Heparin SQ. Status and Disposition: Dispo planning. Son who delivers large amount of care is out of country for next 2 weeks. [facility] [place] or [facility] in [place] with plan to return home if physical strength improves with rehab. Dementia and behavioral disturbances are not new to his home care situation.
--- NOTE | 2017-10-17 20:18 | CONS ---
CONSULTATION REPORT: DATE OF CONSULT: 10/17/17 ATTENDING PHYSICIAN: Holden Zhang MD CONSULTING PHYSICIAN: Hugo Truong MD REASON FOR CONSULT: Agitation and violent behavior. SUBJECTIVE HISTORY: Psychiatry is asked to see this 87-year-old white gentleman with a history of progressive vascular dementia and multiple medical comorbidities due to agitated behavior on the [address] [place] [address] unit. He was admitted close to 2 weeks ago due to altered mental status and the feeling was that he perhaps had delirium superimposed on his progressive dementia. The patient had been living at home under the care of this son who is apparently a commissioning agent. The treatment team has been in contact with the patient's healthcare proxies which are his children and they feel that he stands a reasonable chance of recovering enough to where he could continue to live with them in the community. My understanding is that the treatment team is less optimistic and feels that he warrants fdc placement. The question has also come up in terms of whether or not he would benefit from inpatient [facility] care. Reviewing his medical records, it appears as though he has been receiving sporadic doses of 2 mg IV Haldol for agitation. His presentation according to nursing staff tends to be waxing and waning wherein he will have good days where he is more calm and easily redirected versus other days where he is clearly difficult to manage, tends to be uncomfortable sitting but when they try to position him into assisted ambulation or into a wheelchair he will violently lash out. I read a note from this afternoon in which staff attempted to get him out of the chair, he took a few steps, started swearing at the staff member, swatting at them and threatening them with further violence. There is some reluctance to treat him with scheduled antipsychotic given the FDA black box warning for this class of medication in patients with dementia. When I met with him, Mr. Mccann is very incoherent, he speaks as though there is a group of people in the room with him and makes confabulatory responses to my questions regarding time, place and situation, an example of this is when I ask him the month he states that this is up to the people who get together and decide these things. He is not able to give me any sense of why he is in the hospital or why his family or the treatment team are concerned about him. It is notable that he is a fairly large man, but during my visit he is neither assaultive nor overtly disagreeable. PAST PSYCHIATRIC HISTORY: Apparently is significant for depression and he has been on long-term treatment with both mirtazapine and Sertraline. It does not appear that he has any prior psychiatric hospitalization. SUBSTANCE ABUSE HISTORY: Noncontributory. PAST MEDICAL HISTORY: Significant for, 1. Coronary artery disease. 2. History of CABG. 3. Supraventricular tachycardia. 4. Stroke. 5. Diabetes mellitus. 6. Diverticulitis. 7. Adrenal insufficiency. 8. Hypertension. 9. Hypothyroidism. 10. Dementia. 11. Benign prostatic hypertrophy. 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 His son and daughter share medical decision making status. MENTAL STATUS EXAM: The patient is a tall, fairly largely built white male with fontenot thinning hair who is dressed in a patient gown. He is sitting in a chair in his room, watching a small computer screen, which has a television program playing. He is somewhat cooperative with this examiner although he struggles to answers questions coherently. Speech is slow and measured with largely confabulatory responses. Current mood appears to be euthymic with a full affect. Thought process is illogical, disorganized. Thought content is significant for his confusion about why he is here. He is denying suicidal or homicidal ideations. He denies auditory or visual hallucinations. Insight and judgment are markedly impaired given his cognitive status. Cognitively he is awake and alert but has no knowledge of his current circumstances and no orientation to time or place. He also has impairment in both his fund of knowledge as well as his autobiographical long-term memory. DIAGNOSES: [place] I: Severe neurocognitive disorder, vascular type. Delirium of unknown etiology. [place] II: Deferred. ASSESSMENT: The patient is an 87-year-old white male with a history of progressive vascular dementia as well as multiple medical comorbidities who was brought in by his family due to altered mental status and increasing difficulty living independently in the community with the support of only family. Since admission, he has had a waxing, waning course that is typical of delirium with bouts of agitation and violence directed towards staff. At this point, the primary team would like to consider fdc facility placement; however , the family is resistant towards this. Another possible compromise solution would be having him go to a short-term [facility] program to be psychiatrically stabilized in the hopes that he could potentially return home to his son's house. I think it is my opinion that the patient could possibly benefit from this, if this is what his children decide. My opinion is that fdc facility placement in a locked unit would also be acceptable. RECOMMENDATIONS TO PRIMARY TEAM: Due to the patient's dementia, I would not necessarily schedule an antipsychotic, but rather treat him episodically with p.r.n. Haldol. It appears that the 2 mg dose is sufficient for his agitation. I recommend referral to the geriatric-psychiatric facility in [place], [place] with the interest of returning home thereafter, if indeed this is what is family is preferring, otherwise recommend referral to a long term. Psychiatry will be signing off at this time, but can be reconsulted in the event of any changes in his presentation. Thank you for the interesting consult. [id number]/[facility] #: [id number] JONG
[2017-10-17] MEDS: Mirtazapine TAB* 15 MG PO SCH (20:49)
[2017-10-17] MEDS: CMCS:Melatonin (NF) 3 MG TAB PO SCH (20:49)
[2017-10-18] MEDS: Omeprazole CAP* 20 MG PO SCH (05:51)
[2017-10-18] MEDS: Levothyroxine TAB* 50 MCG TAB PO SCH (05:51)
[2017-10-18] MEDS: Heparin VIAL(*) 5000 UNITS/ML VIAL (FIVE THOUSAND) SUBCUT SCH ×2 (06:17→13:42)
[2017-10-18] MEDS: Insulin LISPRO* 1 UNITS UNIT SUBCUT SCH ×3 (08:14→16:18)
[2017-10-18] MEDS ORDERED: Sertraline* 100 MG TAB PO SCH (09:08)
[2017-10-18 12:30] VITALS: BP 95/46
[2017-10-18] MEDS: Aspirin EC TAB* 81 MG TAB.EC PO SCH (12:30)
[2017-10-18] MEDS: Sotalol TAB* 80 MG PO SCH (12:30)
[2017-10-18] MEDS: Atorvastatin* 40 MG TAB PO SCH (12:30)
[2017-10-18] MEDS: Finasteride TAB* 5 MG PO SCH (12:30)
[2017-10-18] MEDS: Tamsulosin CAP* 0.4 MG PO SCH (12:30)
[2017-10-18] MEDS: Docusate LIQ* 100 MG/10 ML UDC PO SCH (12:30)
[2017-10-18] MEDS: Sertraline* 100 MG TAB PO SCH (13:24)
--- NOTE | 2017-10-18 13:40 | PN ---
Progress Note - Progress Note Date of Service: 10/18/17 Note: Time spent on discharge 55 minutes.
--- NOTE | 2017-10-18 14:07 | TRS ---
CC: Dr. Snell * DATE OF ADMISSION: 10/08/2017. DATE OF TRANSFER: 10/18/2017. HISTORY OF PRESENT ILLNESS: This 87-year-old man presented with confusion. He has a long history of dementia and over the previous six months the family reported that he was more disruptive and having frequent behavioral issues and confusion. For the three days before admission, the confusion was lasting all day rather than at night as it had previously been. He had been incontinent of urine as well. The details of the other history are in the admission note. The patient was brought in for an attempt to moderate his behavioral issues and confusion. He was evaluated with an EEG, an MRI of the brain, and a CT scan of the brain. He was seen in consultation by a neurologist and a psychiatrist. Changes were made to his medications. The day before transfer, he was rather aggressive and did receive a dose of Haloperidol 2 mg IM at 9:33 p.m. the day before transfer. The day of transfer, he seems rather sedated and in bed frequently. I have stopped his Mirtazapine which was started a few days before and may be contributing to some somnolence. I also reduced his Sertraline dose which was at a rather high level and not clearly benefiting him. FINAL DIAGNOSES: 1. Advanced dementia with behavioral problems. 2. Diabetes. 3. Hypertension. 4. SVT. DISCHARGE MEDICATIONS: 1. Prednisolone 1% ophthalmic one drop left eye daily. 2. Alprazolam 0.25 mg b.i.d. prn. 3. Levothyroxine 50 mcg daily. 4. Acetaminophen 325 mg every 4 hours prn. 5. Tamsulosin 0.4 mg daily. 6. Sotalol 80 mg b.i.d. 7. Vitamin D 1,000 units daily. 8. Sertraline 100 mg daily. 9. Sitagliptin 100 mg daily. 10. Rosuvastatin 20 mg b.i.d. 11. Magnesium Oxide 400 mg daily. 12. Folic acid 1 mg daily. 13. Calcium Polycarbophil 625 mg daily. 14. Aspirin 81 mg daily. 15. Quetiapine 25 mg at bedtime. [id number]/[facility] #: [id number] [facility]
== END 2017-10-18 16:10 | disposition short-term general hospital (02) | DRG 884 ==
LOC: ED 17:18 → MED 22:53 → OBSVTOIN 10-08 15:00
PROVIDERS: ADMIT Hospitalist; ATTEND Internal Medicine
PROC: 4A00X4Z Measurement of Central Nervous Electrical Activity, External Approach (ICD-10-PCS; principal; 2017-10-08)
DX: F01.51 Vascular dementia, unspecified severity, with behavioral disturbance (principal); E27.40 Unspecified adrenocortical insufficiency; F05 Delirium due to known physiological condition; I47.1 Supraventricular tachycardia; R32 Unspecified urinary incontinence; R40.0 Somnolence; T43.025A Adverse effect of tetracyclic antidepressants, initial encounter; E11.9 Type 2 diabetes mellitus without complications; I10 Essential (primary) hypertension; I25.10 Atherosclerotic heart disease of native coronary artery without angina pectoris; F41.9 Anxiety disorder, unspecified; F32.9 Major depressive disorder, single episode, unspecified; N40.0 Benign prostatic hyperplasia without lower urinary tract symptoms; E03.9 Hypothyroidism, unspecified; E66.3 Overweight; Z96.642 Presence of left artificial hip joint; E78.5 Hyperlipidemia, unspecified; R40.2412 Glasgow coma scale score 13-15, at arrival to emergency department; F03.90 Unspecified dementia, unspecified severity, without behavioral disturbance, psychotic disturbance, mood disturbance, and anxiety; K59.00 Constipation, unspecified; Y92.9 Unspecified place or not applicable; Z79.82 Long term (current) use of aspirin; Z98.52 Vasectomy status; Z86.73 Personal history of transient ischemic attack (TIA), and cerebral infarction without residual deficits; Z95.3 Presence of xenogenic heart valve; Z86.718 Personal history of other venous thrombosis and embolism; Z95.1 Presence of aortocoronary bypass graft; Z88.5 Allergy status to narcotic agent; Z98.42 Cataract extraction status, left eye; Z98.41 Cataract extraction status, right eye; Z68.25 Body mass index [BMI] 25.0-25.9, adult; Z97.4 Presence of external hearing-aid; Z82.49 Family history of ischemic heart disease and other diseases of the circulatory system; Z72.820 Sleep deprivation
CPT/HCPCS: 36415; 70450; 70551; 71045; 80048; 80053; 81003; 82565; 82607; 82746; 83036; 83605; 84443; 84484; 84520; 85025; 85027; 85610; 85730; 87040; 93005; 95819; 97530; 99284; A9270-GY; G0378; G8978-GP-CJ; G8978-GP-CL; G8979-GP-CI; G8979-GP-CL; G8980-GP-CL; G8987-GO-CL; G8988-GO-CK; J1630; J1644; J2060

== ENCOUNTER 2018-03-25 19:30 | Inpatient (IN) | payer MEDICARE, BC ==
[2018-03-25] MEDS ORDERED: Etomidate* 2 MG/ML 10 ML VIAL IV ONE (19:35)
[2018-03-25] MEDS ORDERED: Succinylcholine* 20 MG/ML 10 ML VIAL IV ONE (19:35)
[2018-03-25] MEDS ORDERED: NS 0.9% 1000 ML*IV.FLUID IV ONE (19:41)
[2018-03-25] MEDS ORDERED: Acetaminophen SUPP* 650 MG SUPP PR ONE (19:43)
[2018-03-25] MEDS ORDERED: Acetaminophen SUPP* 650 MG SUPP ONE (19:43)
[2018-03-25] MEDS ORDERED: Vancomycin(*) 1,000 MG in NS 0.9% 250 ML* 250 ML IVPB ONE (19:43)
[2018-03-25] MEDS ORDERED: Piperacillin/Tazobac ADVAN(*) 3.375 GM in NS 0.9% 100 ML* 100 ML IVPB ONE (19:44)
[2018-03-25] MEDS ORDERED: Albuterol/Ipratropium NEB.SOL* Albuterol 2.5 MG/Ipratropium 0.5 MG 3 ML ONE ×2 (19:53)
--- NOTE | 2018-03-25 19:53 | ED ---
Complex/Multi-Sys Presentation - HPI Summary HPI Summary: LEVEL 5 CAVEAT DUE TO UNRESPONSIVENESS OF THE PATIENT This patient is an 87 year old M BIBA to ED with a chief complaint of respiratory distress and unresponsiveness. The patient was found by his daughter , who is also his proxy, who said that the patient was unresponsive for an unknown length of time when she found him lying on his bed at home. The patient is a DNR/DNI. Daughter reports that yesterday, the patient had an onset of dementia that caused him to be really confused. She reports he has had these episodes before and usually sleeps a lot the next day. She had been monitoring him today and says she saw him moving around. However, during onset of unresponsiveness, the patient aspirated and was unresponsive to pain stimuli. At time of 1936, the daughter wanted the patient to be intubated. Intubation was done at 1936. Etomidate (20mg) was given first, then succinate ( 100 mg) given at 1937. 8mm tube was used and 24 at the lip. - History Of Current Complaint Chief Complaint: EDRespiratoryDistress Time Seen by Provider: 03/25/18 19:41 Hx Obtained From: Family/Otolaryngology Nurse, EMS Onset/Duration: Sudden Onset, Still Present Timing: Constant Severity Currently: None Associated Signs And Symptoms: Positive: Other - respiratory distress and unresponsiveness - Allergies/Home Medications Allergies/Adverse Reactions: Allergies Allergy/AdvReac Type Severity Reaction Status Date / Time No Known Drug Allergies Allergy See Comment Verified 10/07/17 23:39 narcotics AdvReac Altered Uncoded 10/07/17 22:22 Mental Status Home Medications: Home Medications Melatonin [Meladox] 3 mg PO BEDTIME 03/25/18 [History Confirmed 03/25/18] Mirtazapine TAB* [Remeron TAB*] 15 mg PO BEDTIME 03/25/18 [History Confirmed ] Multivitamin/Iron/Folic Acid [Centrum Adults Tablet] 1 each PO DAILY 03/25/18 [ History Confirmed 03/25/18] Risperidone [Risperdal] 0.25 mg PO BID 03/25/18 [History Confirmed 03/25/18] Sertraline* [Zoloft*] 200 mg PO DAILY 03/25/18 [History Confirmed 03/25/18] glipiZIDE [Glipizide Xl] 5 mg PO DAILY 03/25/18 [History Confirmed 03/25/18] PMH/Surg Hx/FS Hx/Imm Hx Endocrine/Hematology History: Reports: Hx Diabetes, Hx Thyroid Disease Cardiovascular History: Reports: Hx Coronary Artery Disease, Hx Hypertension Denies: Hx Pacemaker/ICD History: Reports: Hx Benign Prostatic Hyperplasia Denies: Hx Renal Disease Sensory History: Reports: Hx Hearing Aid - REMOVED FOR MRI Denies: Hx Contacts or Glasses Opthamlomology History: Denies: Hx Contacts or Glasses Neurological History: Reports: Hx Dementia - worse at night Psychiatric History: Reports: Hx Anxiety, Hx Depression Denies: Hx Panic Disorder - Surgical History Surgery Procedure, Year, and Place: AORTIC VALVE REPLACEMENT; CORONARY BYPASS; HERNIA REPAIR X 3; CORNEAL REPLACEMENT- LEFT EYE; LEFT HIP REPLACEMENT; VASECTOMY; BILAT LEGS VENOUS REPAIR - Immunization History Date of Tetanus Vaccine: unknown Infectious Disease History: Unable to Obtain/Confirm Infectious Disease History: Denies: Traveled Outside the [place] in Last 30 Days - Family History Known Family History: Positive: Cardiac Disease, Hypertension - Social History Alcohol Use: None Substance Use Type: Reports: None Smoking Status (MU): Never Smoked Tobacco Review of Systems Positive: Other - respiratory distress Neurological: Other - patient is unresponsive. per the daughter, the patient had an episode of dementia and confusion yesterday and reports that he usually sleeps a lot the next day All Other Systems Reviewed And Are Negative: No Physical Exam - Summary Physical Exam Summary: VITAL SIGNS: Reviewed. GENERAL: Patient is an elderly male who is bagged upon arrival HEAD AND FACE: No signs of trauma. No ecchymosis, hematomas or skull depressions. No sinus tenderness. EYES: pupils are pin point EARS: Ear canals and tympanic membranes are within normal limits. MOUTH: Oropharynx within normal limits. NECK: Supple, trachea is midline, no adenopathy, no JVD, no carotid bruit, CHEST: Symmetric, LUNGS: post intubation: there are bilateral breath sounds CVS: Regular rate and rhythm, S1 and S2 present, no murmurs or gallops appreciated. ABDOMEN: Soft, non-tender. No signs of distention. No rebound no guarding, and no masses palpated. Bowel sounds are normal. EXTREMITIES: FROM in all major joints, no edema, no cyanosis or clubbing. NEURO: unresponsive SKIN: Dry and warm Triage Information Reviewed: Yes Vital Signs On Initial Exam: Initial Vitals Temp Pulse Resp BP Pulse Ox 102.5 F 105 30 92/60 79 03/25/18 19:36 03/25/18 19:36 03/25/18 19:36 03/25/18 19:36 03/25/18 19:36 Vital Signs Reviewed: Yes Completion Of Physical Exam Limited Due To: Level 5 - PATIENT IS UNRESPONSIVE AT THIS TIME - [place] Coma Scale Best Eye Response: 1 - None Best Motor Response: 1 - None Best Verbal Response: 1 - Intubated Coma Scale Total: 3.0 Procedures - Intubation Time of Intubation: 19:37 Intubation Method: orotracheal Tube Size (cm): 8.0 Medications: Succinylcholine - Etomidate (20mg) was given first, then succinate (100 mg) Breath Sounds after Intubation: equal Intubation Complications: no complications Post Intubation Xray: Yes Diagnostics - Vital Signs Vital Signs Temp Pulse Resp BP Pulse Ox 03/25/18 19:36 102.5 F 105 30 92/60 79 - Laboratory Result Diagrams: 03/25/18 19:45 03/25/18 19:45 Lab Statement: Any lab studies that have been ordered have been reviewed, and results considered in the medical decision making process. - Radiology cxr Radiology Interpretation Completed By: ED Physician - ET tube at the level of the clavicle. Right lower lobe infiltrate. Pending official report - CT CT Brain CT Interpretation Completed By: Radiologist - 1. 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 2. No other acute findings. This report is only to be considered final once signed by the Provider(s) as displayed in the "<Electronically Signed by >" field (s). Absence of a signature indicates the report is in a draft status and still needs to be finalized. In the event this document was created by someone other than the signing Provider, the individual initiating the document will be listed in the "Entered by:" or "Dictated by:" vidales. Dr. Berg has reviewed this report. - EKG 19:50 Cardiac Rate: NL EKG Rhythm: Sinus Rhythm - at [address] Segment: Non-Specific - in the inferior leads EKG Interpretation: normal axis, normal intervals, LVH Re-Evaluation - Re-Evaluation First Eval Re-Evaluation Time: 20:42 Change: Unchanged Comment: I discussed the patient's medication with his daughter, she doesn't think he is on blood thinners. Although he does take ASA daily. She endorses strange behavior yesterday. Complex Multi-Symp Course/Dx Course Of Treatment: Upon arrival agonal respiration. He has been bagged by EMS. Pt O2 sat is 75%. Intubated immediately. Pt is a level 5 caveat. Intubation was done at 193. Etomidate (20mg) was given first, then succinate ( 100 mg) given at 1938. 8mm tube was used and 24 at the lip. EKG reveals sinus at 97 BPM nml axis, nml intervals, LVH, and non specific T wave changes in the inferior leads. CXR reveals, Right lower lobe infiltrate. ET tube at the level of the clavicle. Pending official report. CT brain reveals, 1. New right middle cerebral artery territory infarction with mass effect as. described above. 2. No other acute findings. This report is only to be considered final once signed by the Provider(s) as displayed in the "<Electronically Signed by > " field (s). Absence of a signature indicates the report is in a draft status and still needs to be finalized. In the event this document was created by someone other than the signing Provider, the individual initiating the document will be listed in the "Entered by:" or "Dictated by:" viadles. I discussed patient care with Dr. yBers from [facility] He says the patient had a complete stoke. He states there is no intervention needed at this time and to keep vitals and labs as normal as possible. I discussed patient care with the hospitalist and the patient will be admitted. - Diagnoses Provider Diagnoses: Right-sided cerebrovascular accident (CVA), PNA (pneumonia) - Physician Notifications Discussed Care Of Patient With: Hussein Acosta Time Discussed With Above Provider: 21:40 Instructed by Provider To: Admit As Inpatient - Critical Care Time Critical Care Time: 30-74 min - 70 minutes Discharge - Sign-Out/Discharge Documenting (check all that apply): Patient Departure - admitted - Discharge Plan Condition: Fair Disposition: ADMITTED TO [facility] - Attestation Statements Document Initiated by Scribe: Yes Documenting Scribe: Audi Sher Provider For Whom Scribe is Documenting (Include Credential): Mirna Berg MD Scribe Attestation: I, Audi Sher, scribed for Mirna Berg MD on 03/26/18 at 0506. Consult Consult: [id number] I discussed patient care with Dr. Byers from [facility] He says the patient had a complete stoke. He states there is no intervention needed at this time and to keep vitals and labs as normal as possible
[2018-03-25 19:55] LABS: Hematocrit 41 % (42-52); Hemoglobin 13.8 g/dl (14.0-18.0); Mean Corpuscular HGB Conc 34 g/dl (31-36); Mean Corpuscular Hemoglobin 31 pg (27-31); Mean Corpuscular Volume 93 fL (80-94); Platelet Count 181 10^3/ul (150-450); Red Blood Count 4.39 10^6/ul (4.00-5.40); Red Cell Distribution Width 15 % (10.5-15); White Blood Count 8.9 10^3/ul (3.5-10.8)
[2018-03-25] MEDS ORDERED: Midazolam IV for DRIP* 100 MG in NS 0.9% 100 ML* 80 ML IV SCH (20:00)
[2018-03-25] MEDS ORDERED: fentaNYL PCA* 20 ML PCA SCH (20:00)
[2018-03-25 20:05] LABS: INR 0.98 (0.77-1.02)
[2018-03-25 20:13] LABS: EGFR Non-African American 35.1 (>60)
[2018-03-25 20:41] LABS: Urine Appearance Clear; Urine Blood Negative (Negative); Urine Color Yellow; Urine Ketones Negative (Negative); Urine Protein Negative (Negative); Urine Urobilinogen Negative (Negative)
--- NOTE | 2018-03-25 20:54 | RAD ---
EXAM: CT Head Without Intravenous Contrast CLINICAL HISTORY: 87 years old, male; Signs and symptoms; Coma or unconsciousness; Additional info: Unreponsive TECHNIQUE: Axial computed tomography images of the head/brain without intravenous contrast. All CT scans at this facility use at least one of these dose optimization techniques: automated exposure control; mA and/or kV adjustment per patient size (includes targeted exams where dose is matched to clinical indication); or iterative reconstruction. COMPARISON: BRAIN WO CT BRAIN WO 10/07/2017 8:31 PM FINDINGS: Brain: Large area of decreased attenuation involving the right middle cerebral artery territory. There is associated mass effect on the right sided cerebral sulci and right lateral ventricle with approximately 2 mm of midline shift. Old right cerebellar infarction. No hemorrhage. Chronic ischemic changes. Ventricles: Unremarkable. No ventriculomegaly. Bones/joints: Unremarkable. No acute fracture. Soft tissues: Unremarkable. Vasculature: Atherosclerotic calcification. Sinuses: Chronic sinusitis. Mastoid air cells: Unremarkable as visualized. No mastoid effusion. IMPRESSION: 1. 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 2. No other acute findings.
[2018-03-25] MEDS ORDERED: Dexamethasone IV* 4 MG/ML 1 ML (4 MG) IV SLOW PU ONE (20:59)
[2018-03-25 21:09] LABS: ABS Basophils 0 10^3/ul (0-0.2); ABS Eosinophils 0 10^3/ul (0-0.6); ABS Monocytes 1.1 10^3/ul (0-0.8); ABS Neutrophils 6.8 10^3/ul (1.5-7.7)
[2018-03-25 21:12] LABS: ABS Basophils 0.1 10^3/ul (0-0.2); Monocytes % 11 % (0-7)
[2018-03-25] MEDS ORDERED: NS 0.9% 1000 ML* 1,000 ML IV ONE (21:30)
[2018-03-25] MEDS ORDERED: Naloxone* 0.4 MG/ML 1 ML VIAL IV PUSH PRN (22:44)
[2018-03-25] MEDS ORDERED: Acetaminophen SUPP* 650 MG SUPP PR PRN (22:44)
[2018-03-25] MEDS ORDERED: Morphine PCA ADULT* 5 MG/ML 30 ML ONE (22:50)
--- NOTE | 2018-03-25 22:57 | HP ---
H&P (Free Text) History and Physical: PCP: Anum Snell MD Date/Time: 03/25/2018 2230 CC: lethargy HPI: Mr Mccann is an 87YO male HX dementia, CVA, bovine AVR, DVT, SVT, adrenal insufficiency, DM2, HTN, CAD/CABG who slept poorly last night and then compensatorily slept most of the day which is not unusual for him. Family became concerned this evening when he did not and could not be awakened and called EMS. CT brain WO reveals a massive subacute R cortical MCA infarct w/ mass effect. He was intubated upon arrival to ED. I have discussed the findings with the family informing them of the high likelihood of fatality regardless of treatment with the ability to have any meaningful return to function approaching zero. They have been shown the CT finding and their questions have been sought and answered to their satisfaction. They unanimously agree that comfort-only care with withdrawal of supportive treatment is desired. PMedHx CAD/CABG bovine AVR SVT CVA DM2 DVT adrenal insufficiency HTN hypothyroidism dementia BPH depression anxiety Ambulatory Orders ALPRAZolam TAB* [Xanax TAB*] 0.25 mg PO BID PRN 10/07/17 Aspirin EC TAB* [Ecotrin EC Low Dose 81 MG*] 81 mg PO DAILY 10/07/17 Calcium Polycarbophil [Fiber Lax] 4 tab PO DAILY 10/07/17 Cholecalciferol TAB* [Vitamin D TAB*] 1,000 unit PO DAILY 10/07/17 Folic Acid TAB* [Folvite TAB*] 1 mg PO DAILY 10/07/17 Levothyroxine TAB* [Synthroid TAB*] 50 mcg PO QAM 10/07/17 Magnesium Oxide TAB* [MagOx 400 TAB*] 400 mg PO DAILY 10/07/17 Rosuvastatin (NF) [Crestor (NF)] 20 mg PO DAILY 10/07/17 SitaGLIPtin (NF) [Januvia (NF)] 100 mg PO DAILY 10/07/17 Sotalol TAB* [Betapace 80 MG TAB*] 80 mg PO DAILY 10/07/17 Tamsulosin CAP* [Flomax CAP*] 0.4 mg PO DAILY 10/07/17 prednisoLONE 1% OPHTH.SUSP* [Pred Forte 1%*] 1 drop LEFT EYE DAILY 10/07/17 Melatonin [Meladox] 3 mg PO BEDTIME 03/25/18 Mirtazapine TAB* [Remeron TAB*] 15 mg PO BEDTIME 03/25/18 Multivitamin/Iron/Folic Acid [Centrum Adults Tablet] 1 each PO DAILY 03/25/18 Risperidone [Risperdal] 0.25 mg PO BID 03/25/18 Sertraline* [Zoloft*] 200 mg PO DAILY 03/25/18 glipiZIDE [Glipizide Xl] 5 mg PO DAILY 03/25/18 Allergies No Known Drug Allergies Allergy (Verified 10/07/17 23:39) See Comment NKDA narcotics Adverse Reaction (Uncoded 10/07/17 22:22) Altered Mental Status PSurgHx bovine AVR CABG OU cataract extractions R inguinal hernia repair SocHx: no tobacco, alcohol, or recreational drugs; lives with family; 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; full code status, needs revisiting FamHx: reviewed, non-contributory ROS: as above, otherwise reviewed and all were negative vitals: Vital Signs Temp 3.3 C 03/25/18 21:58 Pulse 80 03/25/18 22:14 Resp 22 03/25/18 20:16 BP 107/67 03/25/18 22:14 Pulse Ox 95 03/25/18 22:14 Intake & Output 03/24/18 03/25/18 03/25/18 23:59 11:59 23:59 Intake Total 2730 Balance 2730 Weight 79.379 kg Intake: IV Fluids 2730 Constitutional: NAD, normally developed, overweight elderly white male HEENM: atraumatic; sclera: anicteric; hearing: unable to assess; oropharynx: intubated, mucosa tacky Neck: soft tissue: no nuchal rigidity; thyroid: normal Pulmonary: mechanically ventilated ,clear to auscultation bilaterally, fair aeration, no accessory muscle use CV: RR/RR, normal S1S2, no carotid bruit, no jugular venous distention, 2+ B DP/ PT, no edema Abdominal: soft, non-distended, non-tender, no rebound/guarding/rigidity, normoactive bowel sounds, no hepatosplenomegaly or masses, no costovertebral angle tenderness Musculoskeletal: general: grossly intact, no objective tenderness w/ palpation Integumental: normal appearance and texture of exposed skin Psychiatric orientation: intubated sedated affect: obtunded mood: acquiescent eye contact: absent content: absent memory: unable to assess insight: poor to absent Testing: Lab Results 03/25/18 03/25/18 03/25/18 Range/Units 19:45 19:45 19:45 WBC 8.9 (3.5-10.8) 10^3/ul RBC 4.39 (4.00-5.40) 10^6/ul Hgb 13.8 L (14.0-18.0) g/dl Hct 41 L (42-52) % MCV 93 (80-94) fL MCH 31 (27-31) pg MCHC 34 (31-36) g/dl RDW 15 (10.5-15) % Plt Count 181 (150-450) 10^3/ul MPV 8.0 (7.4-10.4) um3 Neut % (Auto) Not Reportable Lymph % (Auto) Not Reportable [place] % (Auto) Not Reportable Eos % (Auto) Not Reportable Baso % (Auto) Not Reportable Absolute Neuts (auto) 6.8 (1.5-7.7) 10^3/ul Absolute Lymphs (auto) 1.0 (1.0-4.8) 10^3/ul Absolute Monos (auto) 1.1 H (0-0.8) 10^3/ul Absolute Eos (auto) 0 (0-0.6) 10^3/ul Absolute Basos (auto) 0 (0-0.2) 10^3/ul Absolute Nucleated RBC Not Reportable Immature Gran % 8 (0-9) % Neutrophils % 67 (38-83) % Band Neutrophils % 5 (0-8) % Lymphocytes % 8 L (25-47) % Reactive Lymphs % 5 (0-6) % Monocytes % 11 H (0-7) % Eosinophils % 0 (0-6) % Basophils % 1 (0-2) % Myelocytes % 3 H (0-1) % Nucleated RBC % Not Reportable Abs Neuts (Manual) 6.0 (1.5-7.7) 10^3/ul Abs Lymphs (Manual) 0.7 L (1.0-4.8) 10^3/ul Abs Monocytes (Manual) 1.0 H (0-0.8) 10^3/ul Absolute Eos (Manual) 0 (0-0.6) 10^3/ul Abs Basophils (Manual) 0.1 (0-0.2) 10^3/ul Normal RBC Morphology Normal (Normal) INR (Anticoag Therapy) 0.98 (0.77-1.02) APTT 23.4 L (26.0-36.3) seconds ABG pH (7.35-7.45) ABG pCO2 (35-45) mmHg ABG pO2 (80-100) mmHg ABG HCO3 (19-31) mmol/L ABG O2 Saturation (95-98) % ABG Base Excess (-2.0-2.0) Sodium 138 (135-145) mmol/L Potassium 4.9 (3.5-5.0) mmol/L Chloride 107 (101-111) mmol/L Carbon Dioxide 23 (22-32) mmol/L Anion Gap 8 (2-11) mmol/L BUN 30 H (6-24) mg/dL Creatinine 1.84 H (0.67-1.17) mg/dL Est GFR ( Amer) 42.5 (>60) Est GFR (Non-Af Amer) 35.1 (>60) BUN/Creatinine Ratio 16.3 (8-20) Glucose 155 H (70-100) mg/dL POC Glucose (mg/dL) (70-100) mg/dL Lactic Acid (0.5-2.0) mmol/L Calcium 10.0 (8.6-10.3) mg/dL Total Bilirubin 0.60 (0.2-1.0) mg/dL AST 16 (13-39) U/L ALT 10 (7-52) U/L Alkaline Phosphatase 85 (34-104) U/L Troponin I 0.07 H* (<0.04) ng/mL C-Reactive Protein 15.29 H (<8.01) mg/L B-Natriuretic Peptide ( - 100) pg/mL Total Protein 6.8 (6.4-8.9) g/dL Albumin 3.3 (3.2-5.2) g/dL Globulin 3.5 (2-4) g/dL Albumin/Globulin Ratio 0.9 L (1-3) Urine Color Urine Appearance Urine pH (5-9) Ur Specific [place] (1.010-1.030) Urine Protein (Negative) Urine Ketones (Negative) Urine Blood (Negative) Urine Nitrate (Negative) Urine Bilirubin (Negative) Urine Urobilinogen (Negative) Ur Leukocyte Esterase (Negative) Urine Glucose (Negative) 03/25/18 03/25/18 03/25/18 Range/Units 19:45 19:45 19:59 WBC (3.5-10.8) 10^3/ul RBC (4.00-5.40) 10^6/ul Hgb (14.0-18.0) g/dl Hct (42-52) % MCV (80-94) fL MCH (27-31) pg MCHC (31-36) g/dl RDW (10.5-15) % Plt Count (150-450) 10^3/ul MPV (7.4-10.4) um3 Neut % (Auto) Lymph % (Auto) [place] % (Auto) Eos % (Auto) Baso % (Auto) Absolute Neuts (auto) (1.5-7.7) 10^3/ul Absolute Lymphs (auto) (1.0-4.8) 10^3/ul Absolute Monos (auto) (0-0.8) 10^3/ul Absolute Eos (auto) (0-0.6) 10^3/ul Absolute Basos (auto) (0-0.2) 10^3/ul Absolute Nucleated RBC Immature Gran % (0-9) % Neutrophils % (38-83) % Band Neutrophils % (0-8) % Lymphocytes % (25-47) % Reactive Lymphs % (0-6) % Monocytes % (0-7) % Eosinophils % (0-6) % Basophils % (0-2) % Myelocytes % (0-1) % Nucleated RBC % Abs Neuts (Manual) (1.5-7.7) 10^3/ul Abs Lymphs (Manual) (1.0-4.8) 10^3/ul Abs Monocytes (Manual) (0-0.8) 10^3/ul Absolute Eos (Manual) (0-0.6) 10^3/ul Abs Basophils (Manual) (0-0.2) 10^3/ul Normal RBC Morphology (Normal) INR (Anticoag Therapy) (0.77-1.02) APTT (26.0-36.3) seconds ABG pH (7.35-7.45) ABG pCO2 (35-45) mmHg ABG pO2 (80-100) mmHg ABG HCO3 (19-31) mmol/L ABG O2 Saturation (95-98) % ABG Base Excess (-2.0-2.0) Sodium (135-145) mmol/L Potassium (3.5-5.0) mmol/L Chloride (101-111) mmol/L Carbon Dioxide (22-32) mmol/L Anion Gap (2-11) mmol/L BUN (6-24) mg/dL Creatinine (0.67-1.17) mg/dL Est GFR ( Amer) (>60) Est GFR (Non-Af Amer) (>60) BUN/Creatinine Ratio (8-20) Glucose (70-100) mg/dL POC Glucose (mg/dL) 144 H (70-100) mg/dL Lactic Acid 2.2 H* (0.5-2.0) mmol/L Calcium (8.6-10.3) mg/dL Total Bilirubin (0.2-1.0) mg/dL AST (13-39) U/L ALT (7-52) U/L Alkaline Phosphatase (34-104) U/L Troponin I (<0.04) ng/mL C-Reactive Protein (<8.01) mg/L B-Natriuretic Peptide 276 H ( - 100) pg/mL Total Protein (6.4-8.9) g/dL Albumin (3.2-5.2) g/dL Globulin (2-4) g/dL Albumin/Globulin Ratio (1-3) Urine Color Urine Appearance Urine pH (5-9) Ur Specific [place] (1.010-1.030) Urine Protein (Negative) Urine Ketones (Negative) Urine Blood (Negative) Urine Nitrate (Negative) Urine Bilirubin (Negative) Urine Urobilinogen (Negative) Ur Leukocyte Esterase (Negative) Urine Glucose (Negative) 03/25/18 03/25/18 Range/Units 20:05 20:16 WBC (3.5-10.8) 10^3/ul RBC (4.00-5.40) 10^6/ul Hgb (14.0-18.0) g/dl Hct (42-52) % MCV (80-94) fL MCH (27-31) pg MCHC (31-36) g/dl RDW (10.5-15) % Plt Count (150-450) 10^3/ul MPV (7.4-10.4) um3 Neut % (Auto) Lymph % (Auto) [place] % (Auto) Eos % (Auto) Baso % (Auto) Absolute Neuts (auto) (1.5-7.7) 10^3/ul Absolute Lymphs (auto) (1.0-4.8) 10^3/ul Absolute Monos (auto) (0-0.8) 10^3/ul Absolute Eos (auto) (0-0.6) 10^3/ul Absolute Basos (auto) (0-0.2) 10^3/ul Absolute Nucleated RBC Immature Gran % (0-9) % Neutrophils % (38-83) % Band Neutrophils % (0-8) % Lymphocytes % (25-47) % Reactive Lymphs % (0-6) % Monocytes % (0-7) % Eosinophils % (0-6) % Basophils % (0-2) % Myelocytes % (0-1) % Nucleated RBC % Abs Neuts (Manual) (1.5-7.7) 10^3/ul Abs Lymphs (Manual) (1.0-4.8) 10^3/ul Abs Monocytes (Manual) (0-0.8) 10^3/ul Absolute Eos (Manual) (0-0.6) 10^3/ul Abs Basophils (Manual) (0-0.2) 10^3/ul Normal RBC Morphology (Normal) INR (Anticoag Therapy) (0.77-1.02) APTT (26.0-36.3) seconds ABG pH 7.39 (7.35-7.45) ABG pCO2 33 L (35-45) mmHg ABG pO2 113 H (80-100) mmHg ABG HCO3 21.6 (19-31) mmol/L ABG O2 Saturation 98.3 H (95-98) % ABG Base Excess -4.2 L (-2.0-2.0) Sodium (135-145) mmol/L Potassium (3.5-5.0) mmol/L Chloride (101-111) mmol/L Carbon Dioxide (22-32) mmol/L Anion Gap (2-11) mmol/L BUN (6-24) mg/dL Creatinine (0.67-1.17) mg/dL Est GFR ( Amer) (>60) Est GFR (Non-Af Amer) (>60) BUN/Creatinine Ratio (8-20) Glucose (70-100) mg/dL POC Glucose (mg/dL) (70-100) mg/dL Lactic Acid (0.5-2.0) mmol/L Calcium (8.6-10.3) mg/dL Total Bilirubin (0.2-1.0) mg/dL AST (13-39) U/L ALT (7-52) U/L Alkaline Phosphatase (34-104) U/L Troponin I (<0.04) ng/mL C-Reactive Protein (<8.01) mg/L B-Natriuretic Peptide ( - 100) pg/mL Total Protein (6.4-8.9) g/dL Albumin (3.2-5.2) g/dL Globulin (2-4) g/dL Albumin/Globulin Ratio (1-3) Urine Color Yellow Urine Appearance Clear Urine pH 5 (5-9) Ur Specific [place] 1.030 (1.010-1.030) Urine Protein Negative (Negative) Urine Ketones Negative (Negative) Urine Blood Negative (Negative) Urine Nitrate Negative (Negative) Urine Bilirubin Negative (Negative) Urine Urobilinogen Negative (Negative) Ur Leukocyte Esterase Negative (Negative) Urine Glucose Negative (Negative) CXR, personally reviewed: R lower & middle lobe infiltrate, suspicious for aspiration in the clinical setting CT brain WO, personally reviewed: IMPRESSION: 1. 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 2. No other acute findings. Impression: 87M HX dementia, CVA, bovine AVR, DVT, SVT, adrenal insufficiency, DM2, HTN, CAD/CABG presents with a subacute massive R cortical MCA infarct DIAGNOSIS & PLAN Primary subacute massive R cortical MCA infarct : ICU admission : initiate morphine GTT for confort & anxiolysis, if present : family aware that morphine may hasten passing and accept : terminal extubation when family is prepared Secondary CAD/CABG bovine AVR HX CVA DM2 HX SVT HX DVT HTN HLD hypothyroidism depression anxiety BPH Admission Rational: inpatient for end-of-life care DVTp: none given terminal situation Code Status: DNR/I, MOLST updated HCP: daughter, Lena
[2018-03-25] MEDS: Morphine PCA ADULT* 5 MG/ML 30 ML PCA SCH (23:28)
[2018-03-25 23:30] VITALS: BP 76/51
[2018-03-26] MEDS: Atropine 1% (ORAL/SL)* 15 ML BTL SL PRN ×3 (07:43→16:58)
--- NOTE | 2018-03-26 07:45 | RAD ---
INDICATION: Fever. COMPARISON: Comparison is made to prior chest x-ray study from October 07, 2017. TECHNIQUE: A portable view of the chest was obtained. FINDINGS: The patient is status post sternotomy and aortic valve replacement surgery. The heart is within normal limits in size. There is an endotracheal tube tip at the level of the collicular heads. There is a nasogastric tube present. The catheter tip projects overlying the fundus of the stomach. The side port is in the esophagus. There is an infiltrate at the right lung base. The left lung appears clear. No pleural effusion is seen. IMPRESSION: 1. STATUS POST INTUBATION AND NASOGASTRIC TUBE IS NOTED DESCRIBED. 2. RIGHT BASILAR INFILTRATE. R0
[2018-03-26] MEDS ORDERED: Morphine VIAL* 10 MG/ML 1 ML VIAL ONE (11:56)
[2018-03-26] MEDS: Morphine PCA ADULT* 5 MG/ML 30 ML PCA SCH (12:58)
[2018-03-26] MEDS: Morphine VIAL* 10 MG/ML 1 ML VIAL IV PRN ×3 (13:08→17:42)
--- NOTE | 2018-03-26 14:54 | PN ---
Hospitalist Progress Note Date of Service: 03/26/18
--- NOTE | 2018-03-26 15:00 | PN ---
Subjective Date of Service: 03/26/18 Interval History: Called to bedside by ICU charge nurse. Patient remains unresponsive with sometimes agonal respirations with pauses. Morphine continues to infuse at 10mg/ hr and appears comfortable with RR <20. Patient's son and daughter at bedside. Patient's son has been verbally aggressive and argumentative with ICU charge nurse. As I approached the son Marcelino, he continues to exhibit aggressive/angry statements. He seems to be pre-occupied with complaining about the health care system and lack of care shown his father during this time and questioned me as to why I wasn't giving fluids or more morphine because his father is "grimacing and uncomfortable, lenora cooley." I explained to the son that the patient appears very comfortable and that I would dose morphine in accordance with accepted guidelines and standards of care within my scope and the law and that I promise to keep him as comfortable as possible. Marcelino was dismissive when I explained that his respirations were continuing to be agonal and that his father is actively dying, stating "he's done that 25 times last night and he's still here , what makes this different?" I again explained that all patients are unique in their dying experience and there is no way to tell exactly when he will pass and that his nurse will monitor him closely and provide meds as needed. During this time, patient was apneic again for 45 sec-1 minute but still has a pulse which is tachycardic. I offered support to his sister who is tearful and excused myself. Objective Active Medications: Acetaminophen (Tylenol Supp*) 650 mg VA Q6H PRN PRN Reason: FEVER/PAIN Atropine Sulfate (Atropine 1% (Oral/Sl)*) 2 drop SL Q30M PRN PRN Reason: SIALORRHEA Last Admin: 03/26/18 13:08 Dose: 2 drp Morphine Sulfate (Morphine Coremaker Pipe Adult* 5 Mg/Ml) 30 mls @ 0 mls/hr CONCESSIONIST .change Q24H [facility]; Protocol Last Admin: 03/26/18 12:58 Dose: 2 mls/hr Morphine Sulfate (Morphine Vial*) 5 mg IV Q30M PRN PRN Reason: .RESPIRATORY DISTRESS Last Admin: 03/26/18 13:08 Dose: 5 mg Vital Signs - 8 hr 03/26/18 03/26/18 03/26/18 12:02 12:17 12:58 Respiratory 10 10 12 Rate 03/26/18 03/26/18 12:59 13:08 Respiratory 12 12 Rate Oxygen Devices in Use Now: None Appearance: unresponisve Respiratory: - - agonal Cardiovascular: - - tachycardic Result Diagrams: 03/25/18 19:45 03/25/18 19:45 Microbiology and Other Data: Microbiology 03/25/18 20:00 Gram Stain - Final Sputum Trach Diagnostic Imaging: Patient Name: CONCHIS KAUR Medical Record#: [id number] Ordering Physician: Funmilayo Berg MD Acct.#: [id number] : 1930 Age: 87 Sex: M Location: EMERGENCY DEPARTMENT Exam Date: 03/25/181941 ADM Status: REG ER Order Information: CT BRAIN WO Accession Number: [id number] CPT: 22988 ADDENDUM THIS REPORT CONTAINS FINDINGS THAT MAY BE CRITICAL TO PATIENT CARE. The findings were verbally communicated via telephone conference with FUNMILAYO BERG at 8:55 PM EDT on 03/25/2018. The findings were acknowledged and understood. <Electronically signed by Andreas Mcmahon MD in OV>03/25/182054 Dictated by: Andreas Mcmahon MD Dictated Date/Time:03/25/182054 Transcribed Date/Time: Copy to: Funmilayo Berg MD; Armando Snell MD EXAM: CT Head Without Intravenous Contrast CLINICAL HISTORY: 87 years old, male; Signs and symptoms; Coma or unconsciousness; Additional info: Unreponsive TECHNIQUE: Axial computed tomography images of the head/brain without intravenous contrast. All CT scans at this facility use at least one of these dose optimization techniques: automated exposure control; mA and/or kV adjustment per patient size (includes targeted exams where dose is matched to clinical indication); or iterative reconstruction. COMPARISON: BRAIN WO CT BRAIN WO 10/07/2017 8:31 PM FINDINGS: Brain: Large area of decreased attenuation involving the right middle cerebral artery territory. There is associated mass effect on the right sided cerebral sulci and right lateral ventricle with approximately 2 mm of midline shift. Old right cerebellar infarction. No hemorrhage. Chronic ischemic changes. Ventricles: Unremarkable. No ventriculomegaly. Bones/joints: Unremarkable. No acute fracture. Soft tissues: Unremarkable. Vasculature: Atherosclerotic calcification. Sinuses: Chronic sinusitis. Mastoid air cells: Unremarkable as visualized. No mastoid effusion. IMPRESSION: 1. 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 2. No other acute findings. This report is only to be considered final once signed by the Provider(s) as displayed in the "<Electronically Signed by >" field (s). Absence of a signature indicates the report is in a draft status and still needs to be finalized. In the event this document was created by someone other than the signing Provider, the individual initiating the document will be listed in the "Entered by:" or "Dictated by:" vidales. 1 of 2 Assess/Plan/Problems-Billing Assessment: This is an 87 year old male that presented with ABC alert to ED, was intubated and stablized, CT scan of brain shows large middle cerebral artery infarct. - Patient Problems (1) Cerebral infarction involving middle cerebral artery Code(s): I63.519 - CEREB INFRC D/T UNSP OCCLS OR STENOS OF UNSP MID CEREB ART SNOMED Code(s): 914666570 Comment: - Large infarct with mass effect and irreversible damage - Patient extubated per family wishes and comfort measures initiated - Continue morphine drip at 10mg/hr with IV bolus doses of 5 mg [id number] PRN - Atropine drops PRN Status and Disposition: Continue comfort, is imminent.
--- NOTE | 2018-03-27 15:06 | DS ---
CC: Dr. Armando Snell * DISCHARGE SUMMARY: DATE OF ADMISSION: 03/25/18 DATE OF DISCHARGE/: 03/26/18 PRIMARY CARE PROVIDER: Dr. Armando Snell. ATTENDING PHYSICIAN: Dr. Bella Merrill.* (DICTATED BY RANGEL MADRIGAL NP) HOSPITAL COURSE: This was an 87-year-old male patient well known to our service that presented to the emergency department with history of 24 hours of lethargy. The patient had history of dementia, CVA, aortic valve replacement, DVT, SVT, renal insufficiency, diabetes, hypertension, CAD, and CABG. He was well known to our service. He had been admitted a couple of times earlier in the year for his dementia, which was unstable at times. The patient upon coming in to the emergency department was rapidly deteriorating and came in as an ABC alert. The patient was intubated. Although the patient was DNR/DNI, the family was panicked and wanted more meaningful treatment, as such the patient was intubated. CAT scan was obtained of the head, which revealed a subacute right cortical MCA infarct with mass effect. The patient's prognosis was grave at that point and a very [place] discussion was had with the family about withdrawal of support given the findings on his CT scan. The patient was started on comfort measures with a morphine drip starting at 10 mg per hour with boluses as needed. The patient was subsequently extubated at approximately 10 after 12 on the morning of 03/26/18. Family stayed with him most of the night. Upon examination in the morning on 03/26/18, the patient remained with agonal respirations and appeared to be actively dying. The patient and was pronounced when he at approximately 1745 this evening. REVIEW OF SYSTEMS: Unable to obtain. PHYSICAL EXAMINATION: The patient had fixed dilated pupils. No spontaneous respirations and was noted in the asystole upon auscultation for greater than 1 minute. Again, the patient was subsequently pronounced. I had a discussion with the family and offered support and condolences. The EDRS was updated in the online system; the certificate number is [id number]. Nursing staff will take care of postmortem care. RANGEL MADRIGAL RASPBERRY CHECKER [id number]/[facility] #: [id number] [facility]
== END 2018-03-26 17:45 | disposition expired | DRG 65 ==
LOC: ED 19:30 → ICU 22:42
PROVIDERS: ADMIT Hospitalist; ATTEND Internal Medicine
PROC: 0BH17EZ Insertion of Endotracheal Airway into Trachea, Via Natural or Artificial Opening (ICD-10-PCS; principal; 2018-03-25)
PROC: 5A1935Z Respiratory Ventilation, Less than 24 Consecutive Hours (ICD-10-PCS; 2018-03-25)
DX: I63.9 Cerebral infarction, unspecified (principal); I47.1 Supraventricular tachycardia; E27.40 Unspecified adrenocortical insufficiency; I25.10 Atherosclerotic heart disease of native coronary artery without angina pectoris; I11.9 Hypertensive heart disease without heart failure; E11.9 Type 2 diabetes mellitus without complications; Z51.5 Encounter for palliative care; E78.5 Hyperlipidemia, unspecified; E03.9 Hypothyroidism, unspecified; F32.9 Major depressive disorder, single episode, unspecified; F41.9 Anxiety disorder, unspecified; F03.90 Unspecified dementia, unspecified severity, without behavioral disturbance, psychotic disturbance, mood disturbance, and anxiety; N40.0 Benign prostatic hyperplasia without lower urinary tract symptoms; Z86.718 Personal history of other venous thrombosis and embolism; Z95.1 Presence of aortocoronary bypass graft; Z86.73 Personal history of transient ischemic attack (TIA), and cerebral infarction without residual deficits; Z95.2 Presence of prosthetic heart valve; Z79.84 Long term (current) use of oral hypoglycemic drugs; Z79.82 Long term (current) use of aspirin; Z79.891 Long term (current) use of opiate analgesic; Z79.899 Other long term (current) drug therapy
CPT/HCPCS: 36415; 70450; 71045; 80053; 81003; 82803; 83605; 83880; 84484; 85025; 85610; 85730; 86140; 87040; 87070; 87077; 87186; 87205; 93005; 99285; A9270-GY; J1100; J2270; J2543; J3370